=== PATIENT | female | born 1985 | race Caucasian/White ===

== ENCOUNTER → 2017-09-07 | Outpatient (CLI) | payer BC ==
--- NOTE | 2017-09-07 13:44 | Diagnostic Imaging Report ---
INDICATION: Left breast density. Patient presents for additional views. COMPARISON: 08/19/2017. TECHNIQUE: Unilateral left 2D and 3D diagnostic mammography was performed including a rolled CC spot as well as spot compression CC, spot compression ML, and conventional 90 degree lateral views. FINDINGS: Parenchymal asymmetry in the outer left breast is noted. No discrete mass is seen with additional views and the findings are likely owing to benign parenchymal asymmetry. No suspicious calcifications are seen. IMPRESSION: Parenchymal asymmetry in the outer left breast at approximately the 3 o'clock location is likely benign parenchymal asymmetry. No discrete mass is seen with additional views. Even so, further evaluation of this area with ultrasound is recommended. ACR BI-RADS Category 0: Incomplete. (Needs additional imaging evaluation). Result letter will be mailed to the patient. Note: At least 10% of breast cancer is not imaged by mammography. Dictated by: Dictated on workstation # [id number]
--- NOTE | 2017-09-07 14:11 | Diagnostic Imaging Report ---
INDICATION: Left breast density. COMPARISON: Correlation is made with the diagnostic mammogram of 09/07/2017 and an outside screening mammogram from 08/19/2017. TECHNIQUE: Sonographic interrogation of the outer left breast was performed. FINDINGS: No sonographic abnormality is seen. No solid or cystic mass is detected. IMPRESSION: No sonographic abnormality is seen. The patient may return to routine annual screening mammography. Dictated by: Dictated on workstation # [id number]
== END ==
LOC: RAD 13:08
PROVIDERS: ATTEND Nurse Practitioner Family
DX: N64.89 Other specified disorders of breast (principal)
CPT/HCPCS: 76642

== ENCOUNTER 2020-06-21 05:33 | Outpatient (CLI) | payer BC ==
[~2020-06-21] VITALS: Ht 162.6 cm; Wt 96.8 kg
[~2020-06-21 05:33] MED LIST: ACHD5005 PO; FLUT9.9S NS; NORE-91 PO; RT-ALBUINH IH
[2020-06-21] MEDS ORDERED: MONT10TA32 PO (11:12)
== END 2020-06-21 11:19 | disposition home or self-care (01) ==
LOC: PREOP 05:33
PROVIDERS: ATTEND Obstetrics & Gynecology
DX: Z01.818 Encounter for other preprocedural examination (principal)

== ENCOUNTER 2020-06-29 07:09 | Day surgery (SDC) | payer BC ==
[2020-06-29] VITALS (10 sets, daily range): BP systolic 87–134; BP diastolic 47–73
[~2020-06-29] VITALS: Ht 162.6 cm; Wt 96.8 kg
[~2020-06-29 07:09] MED LIST changes: +MONT10TA32 PO
[2020-06-29] MEDS: LACTATED RINGERS 1,000 ML IV PRN ×2 (07:48→09:22)
[2020-06-29 08:01] LABS: BASOPHILS % (AUTO) 0 % (0-10); EOSINOPHILS # (AUTO) 0.2 10^3/uL (0.0-0.3); EOSINOPHILS % (AUTO) 2 % (0-10); HEMATOCRIT 34 % (35-52); HEMOGLOBIN 11.2 g/dL (11.5-16.0); LYMPHOCYTES # (AUTO) 1.8 10^3/uL (1.0-4.0); LYMPHOCYTES % (AUTO) 17 % (12-44); MEAN CORPUSCULAR HEMOGLOBIN 28 pg (25-34); MEAN CORPUSCULAR HGB CONC 33 g/dL (32-36); MEAN CORPUSCULAR VOLUME 86 fL (80-99); MEAN PLATELET VOLUME 12.2 fL (9.0-12.2); MONOCYTES # (AUTO) 0.5 10^3/uL (0.0-1.0); MONOCYTES % (AUTO) 5 % (0-12); NEUTROPHILS # (AUTO) 8.3 10^3/uL (1.8-7.8); NEUTROPHILS % (AUTO) 76 % (42-75); PLATELET COUNT 266 10^3/uL (130-400); WHITE BLOOD COUNT 10.8 10^3/uL (4.3-11.0)
[2020-06-29] MEDS ORDERED: ONDANSETRON 4 MG/2 ML (SDV) Z0FRAN ONE (08:06)
[2020-06-29] MEDS ORDERED: MV-M1COM2 PO (08:20)
[2020-06-29] MEDS ORDERED: fentaNYL INJ 100 MCG/2 ML AMP ONE (08:26)
--- NOTE | 2020-06-29 08:31 | Progress Note-Pre Operative ---
Pre-Operative Progress Note H&P Reviewed The H&P was reviewed, patient examined and no changes noted. Date Seen by Provider: Jun 29, 2020 Time Seen by Provider: 08:00 Date H&P Reviewed: Jun 29, 2020 Time H&P Reviewed: 07:55 Pre-Operative Diagnosis: Shortened cervix, Hx of LEEP DAISHA BRAVO DO Jun 29, 2020 08:31
--- NOTE | 2020-06-29 08:34 | Discharge Inst-Women's Service ---
Discharge Inst-Women's Serv Depart Medication/Instructions New, Converted or Re-Newed RX: RX on Chart Problems Reviewed?: Yes Consults/Follow Up Additional Follow Up: Yes Orders/Referrals Dr. Bravo next week Activity Activity: Activity as Tolerated Driving Instructions: You May Drive (do not drive this weekend) NO SMOKING: NO SMOKING Nothing Inside Vagina: No Douching, No [place], No Tampons Diet Discharge Diet: No Restrictions Symptoms to Report to : Bleeding Excessive, Pain Increased, Fever Over 101 Degrees F, Vaginal Bleeding Increase, Questions/Concerns For Any Problems or Questions: Contact Your Physician DAISHA BRAVO DO Jun 29, 2020 08:34
[2020-06-29] MEDS ORDERED: ACHD5005 PO (08:35)
[2020-06-29] MEDS ORDERED: INDO25CA99 PO (08:35)
[2020-06-29] MEDS ORDERED: HYDROcodone/APAP 5 MG/325 MG (LORTAB) TAB PO PRN (08:45)
[2020-06-29] MEDS ORDERED: HYDROmorphone 2 MG/ML VIAL (DILAUDID) IV PRN (08:45)
[2020-06-29] MEDS ORDERED: ONDANSETRON 4 MG/2 ML (SDV) Z0FRAN IVP PRN ×2 (08:45→09:15)
[2020-06-29] MEDS ORDERED: INDOMETHACIN 25 MG (INDOCIN) CAP PO ONE (08:45)
[2020-06-29] MEDS ORDERED: D5 LR IV SOLUTION 1,000 ML IV SCH (08:45)
--- NOTE | 2020-06-29 09:52 | Anesthesia-Regional Post-Op ---
Regional Patient Condition Mental Status: Alert, Oriented x3 Circulation: Same as Pre-Op Headache: Absent Sensation: Full Recovery Motor Block: Absent Post Op Complications Complications None Follow Up Care/Instructions Patient Instructions None needed. Anesthesia/Patient Condition Patient is doing well, no complaints, stable vital signs, no apparent adverse anesthesia problems. No complications reported per nursing. [place] [facility]: Yes JUANITO SUE CRNA Jun 29, 2020 09:52
--- NOTE | 2020-06-29 15:33 | OPERATIVE REPORT ---
DATE OF SERVICE: PREOPERATIVE DIAGNOSES: 1. A 34-year-old female with shortened cervix. 2. History of conization of the cervix. POSTOPERATIVE DIAGNOSES: 1. A 34-year-old female with shortened cervix. 2. History of conization of the cervix. PROCEDURE: Jenkins cerclage x2. SURGEON: Sandro Campuzano DO ANESTHESIA: Spinal. ESTIMATED BLOOD LOSS: 50 mL. URINE OUTPUT: Not recorded. The patient had voided at the start of the procedure. FLUIDS: 1000 mL lactated Ringer's solution. FINDINGS: A shortened cervix on gross inspection followed by a shortened cervix on ultrasound examination, less than 4 cm at 15 weeks. Grossly normal-appearing external female genitalia otherwise. SPECIMEN SENT: None. INDICATIONS FOR PROCEDURE: This 34-year-old female is a patient who had sought care in my office. She had a identified early in the first trimester, with her history reviewed. We would monitor her cervical length at 14 to 15 weeks and if there was anything less than 4 cm would proceed with a cerclage prophylactically due to the increased risk of dilation in labor and cervical incompetence. Risk of the procedure were discussed with the patient extensively in the office and reviewed again in the preoperative area including risk of bleeding, infection, damage to any surrounding structures including but not limited to uterus itself as well as loss of life, possible premature rupture of membranes, which at this point, the fetus would not be viable. After all of her questions were answered, she was agreeable to proceed. Consent was obtained and the patient was taken to the operating room. OPERATIVE REPORT IN DETAIL: Once in the operating room, spinal anesthesia was found to be adequate, placed in dorsal lithotomy position, prepped and draped in normal sterile fashion. Timeout was performed. Weighted speculum was inserted to the patient's vagina. Right angle retractor was used to visualize the cervix, which was grasped at 12 o'clock position using a long ring forceps. I then placed two separate Jenkins cerclages with #1 goretex non dissolvable green stained suture starting at the 12 o'clock position, taking four separate 1/4 of the cervix bites around the cervix, creating a pursestring and sensing the pursestring at the 12 o'clock position. Both of these are felt to have an adequate amount of tissue and suturing the cervix, after which there was no active bleeding noted. The vagina was copiously irrigated using normal saline. The irrigation was noted to be clear at the end of the procedure and no bleeding was noted. All instruments were removed from the patient's vagina. The patient tolerated the procedure well and sent to recovery in stable condition. Lap and sponge counts were correct at the end of the procedure. Instrument counts correct as well. heart tones were auscultated at 158 and 161, both pre and postoperatively. Job ID: [id number] DocumentID: [id number] Dictated Date: 06/29/2020 09:17:49 Shredding Machine Knife Changer Date: 06/29/2020 15:32:38 Dictated By: DO BILLIE PINTO
== END 2020-06-29 13:10 | disposition home or self-care (01) ==
LOC: SDC 07:09
PROVIDERS: ATTEND Obstetrics & Gynecology
DX: O26.872 Cervical shortening, second trimester (principal); Z88.2 Allergy status to sulfonamides; Z68.36 Body mass index [BMI] 36.0-36.9, adult; E66.9 Obesity, unspecified; Z79.899 Other long term (current) drug therapy; Z83.3 Family history of diabetes mellitus; Z82.49 Family history of ischemic heart disease and other diseases of the circulatory system
CPT/HCPCS: 36415; 85025; 86850; 86900; 86901; 87081

== ENCOUNTER → 2020-07-27 | Outpatient (CLI) | payer BC ==
[~2020-07-27] MED LIST changes: +INDO25CA99 PO; +MV-M1COM2 PO
--- NOTE | 2020-07-27 17:02 | Diagnostic Imaging Report ---
INDICATION: Anatomy survey. TECHNIQUE: Multiple real-time grayscale images were obtained over the gravid uterus. COMPARISON: None. FINDINGS: Gestational age 20 weeks, 2 days, with an LAMINE of 12/12/2020. Number: Single live intrauterine Presentation: Cephalic Placenta: Posterior Amniotic Fluid: VIOLETA is visually within normal limits. No measurements of the amniotic fluid were obtained. Heart Rate: 140 bpm Cerebellum: visualized Lateral ventricles: visualized Cavum septum pellucidum: visualized Nasal Bone: Not visualized Face: Not visualized Stomach: visualized Kidneys: visualized Bladder: visualized Three vessel cord: visualized Cord insertion: visualized 4 chamber heart: visualized outflow tracts: Not visualized Spine, upper: visualized Spine, lower: visualized Upper extremities: visualized Lower extremities: visualized Hands: Visualized, however not all fingers are well seen. Feet: Visualized, however not all toes are well seen. Biometrical measurements are as follows: Biparietal 4.76 cm, age 20 weeks 3 days. Head circumference 17.59 cm, age 20 weeks 1 days. Abdominal circumference 14.66 cm, age 20 weeks 0 days. Femur length 3.52 cm, age 21 weeks 1 days. Sonographic estimate age: 20 weeks 3 days. Sonographic estimated date of delivery: 12/11/20. Estimated Weight: 355 gm (+/- 52 gm). LMP percentile: 55%. heart rate: 140 beats per minute. number: 1 of 1. IMPRESSION: 1. Single live intrauterine gestation measuring 20 weeks 3 days with an estimated due date of 12/11/2020. These are within range of the clinical dates. 2. The outflow tracts, nasal bone, and face are not visualized. The remainder of the anatomic structures are seen and have a normal appearance. Recommend follow-up as indicated. Dictated by: Dictated on workstation # [id number]
== END ==
LOC: RAD 15:15
PROVIDERS: ATTEND Nurse Practitioner Women's Health
DX: Z34.02 Encounter for supervision of normal first pregnancy, second trimester (principal); Z3A.20 20 weeks gestation of pregnancy
CPT/HCPCS: 76805

== ENCOUNTER → 2020-11-15 | Outpatient (CLI) | payer BC ==
[2020-11-15 17:20] LABS: URINE CREATININE FOR RATIO 21 MG/DL (30-125); URINE PROTEIN FOR RATIO ONLY < 6 MG/DL (6-12)
== END ==
LOC: LABNPT 16:31
PROVIDERS: ATTEND Nurse Practitioner Women's Health
DX: R03.0 Elevated blood-pressure reading, without diagnosis of hypertension (principal)
CPT/HCPCS: 82570; 84156

== ENCOUNTER 2020-11-22 16:28 | Inpatient (IN) | payer BC ==
[2020-11-22] VITALS (20 sets, daily range): BP systolic 135–191; BP diastolic 63–92
[~2020-11-22] VITALS: Ht 162.6 cm; Wt 98.6 kg
[2020-11-22] MEDS ORDERED: GLYB1.253 PO (17:07)
[2020-11-22 17:16] LABS: BASOPHILS # (AUTO) 0.1 10^3/uL (0.0-0.1); BASOPHILS % (AUTO) 0 % (0-10); EOSINOPHILS # (AUTO) 0.2 10^3/uL (0.0-0.3); EOSINOPHILS % (AUTO) 1 % (0-10); HEMATOCRIT 39 % (35-52); HEMOGLOBIN 12.4 g/dL (11.5-16.0); LYMPHOCYTES # (AUTO) 2.5 10^3/uL (1.0-4.0); LYMPHOCYTES % (AUTO) 21 % (12-44); MEAN CORPUSCULAR HEMOGLOBIN 27 pg (25-34); MEAN CORPUSCULAR HGB CONC 32 g/dL (32-36); MEAN CORPUSCULAR VOLUME 86 fL (80-99); MEAN PLATELET VOLUME 15.5 fL (9.0-12.2); MONOCYTES # (AUTO) 0.7 10^3/uL (0.0-1.0); MONOCYTES % (AUTO) 5 % (0-12); NEUTROPHILS # (AUTO) 8.6 10^3/uL (1.8-7.8); NEUTROPHILS % (AUTO) 71 % (42-75); PLATELET COUNT 156 10^3/uL (130-400); WHITE BLOOD COUNT 12.1 10^3/uL (4.3-11.0)
[2020-11-22 17:17] LABS: ALBUMIN 3.5 GM/DL (3.2-4.5)
[2020-11-22 17:18] LABS: POTASSIUM 3.6 MMOL/L (3.6-5.0)
[2020-11-22 17:19] LABS: CALCIUM 10.1 MG/DL (8.5-10.1)
[2020-11-22 17:20] LABS: TOTAL PROTEIN 7.4 GM/DL (6.4-8.2)
[2020-11-22 17:22] LABS: BILIRUBIN,TOTAL 0.3 MG/DL (0.1-1.0)
[2020-11-22 17:24] LABS: CREATININE SERUM 0.81 MG/DL (0.60-1.30)
[2020-11-22 17:27] LABS: URIC ACID 6.4 MG/DL (2.6-7.2)
[2020-11-22] MEDS ORDERED: hydrALAZINE (APESOLINE) 20 MG/ML VIAL ONE (18:27)
[2020-11-22] MEDS ORDERED: NS IV 1000 ML 1,000 ML ONE (18:27)
[2020-11-22] MEDS ORDERED: hydrALAZINE (APESOLINE) 20 MG/ML VIAL IV PRN (18:30)
[2020-11-22] MEDS: NS IV 1000 ML 1,000 ML IV SCH ×2 (19:29→22:46)
[2020-11-22] MEDS ORDERED: MINERAL OIL CONCENTRATE 99.9% 15 ML UDC TOP PRN (19:30)
[2020-11-22] MEDS ORDERED: hydrALAZINE (APESOLINE) 20 MG/ML VIAL IV ONE (20:15)
--- NOTE | 2020-11-22 21:51 | History & Physical-OB ---
OB - Chief Complaint & HPI Date/Time Date of Admission: Date of Admission: Nov 22, 2020 at 19:48 Date seen by a Provider: Nov 22, 2020 Time Seen by a Provider: 17:00 Chief Complaint/History OB-Reason for Admission/Chief: Medical Complication Hx : 1 Hx Para: 0 Expected Date of Delivery: Dec 12, 2020 Gestational Age in Weeks: 37 Gestational Age in Days: 1 Indication for induction: medical complication Other reason for admission: Patient sent over from office after cerclage was removed for BP of 170/100s. Concerns of preE discussed with patient. She is also GDMA2 on glyburide. Admission Nurse Assessment Rev: Yes History of Labs A pos Antibody neg RI RPR NR HBsAg NR HIV NR GC neg GBS neg Allergies and Home Medications Allergies Coded Allergies: Sulfa (Sulfonamide Antibiotics) (Verified Allergy, Mild, HIVES, 06/29/20) Patient Home Medication List Home Medication List Reviewed: Yes Albuterol Sulfate (Proair Hfa) 1 Puff Puff, 2 PUFF IH Q4H PRN for SHORTNESS OF BREATH, (Reported) Entered as Reported by: ZOEY KIM on 11/10/17 1000 Last Action: Reviewed Glyburide (Glyburide) 1.25 Mg Tablet, 1.25 MG PO HS, (Reported) Entered as Reported by: DONY VALDEZ on 11/22/20 1707 Last Action: New Order Montelukast Sodium (Montelukast Sodium) 10 Mg Tablet, 10 MG PO DAILY, (Reported) Entered as Reported by: VILMA COMER on 06/21/20 1112 Last Action: Reviewed Mv-Mn/Iron/FA/Om3/Dha/Epa/Hb/D ( Daily Duo Combo Pack) 1 Each Combo..pkg, 1 EACH PO DAILY, (Reported) Entered as Reported by: MARYELLEN LEBRON on 06/29/20 0820 Last Action: Reviewed Discontinued Medications Fluticasone Propionate (Flonase Allergy Relief) 9.9 Ml [place].susp, 1 SPRAY NS DAILY PRN for CONGESTION, (Reported) Discontinued Reason: No Longer Taking Entered as Reported by: ZOEY KIM on 11/10/17 1000 Last Action: Discontinued Hydrocodone Bit/Acetaminophen (HYDROcodone/APAP 5 MG/325 MG TAB) 1 Tab Tab, 1 EA PO Q4H PRN for PAIN-MODERATE (5-7) Discontinued Reason: No Longer Taking Prescribed by: DAISHA BRAVO on 06/29/20834 Last Action: Discontinued Indomethacin (Indomethacin) 25 Mg Capsule, 25 MG PO Q6H Discontinued Reason: No Longer Taking Prescribed by: DAISHA BRAVO on 06/29/20834 Last Action: Discontinued OB - History Hx of Present Care: Yes Ultrasounds: Normal mid trimester US Obstetrical Complications: Gestational Diabetes, Gestational Hypertension Medical Complications: None Obstetrical History Hx : 1 Hx Para: 0 Hx Total # of Abortions (Spona: 0 Delivery History Hx Blood Disorders: No Adverse Rxn to Tranfusion: No (N/A) Patient Past Medical History history of conization of cervix thus need for cerclage due to shortened cervix. Social History/Family History Alcohol Use: Denies Use Recreational Drug Use: No Immunizations Date of Influenza Vaccine: Dec 22, 2019 OB - Admission Exam Physical Exam Vitals: Vital Signs 11/22/20 11/22/20 17:10 18:15 Temp 36.7 Pulse 64 Resp 18 B/P (MAP) 157/86 (109) Pulse Ox 98 O2 Delivery Room Air HEENT: NCAT Heart: Rhythm Normal Lungs: Clear Abdomen: Gravid Extremities: Normal Reflexes: Normal Cervical Dilatation: Fingertip Effacement: 50% Station: -3 Membranes: Intact Heart Rate: 130's Accelerations: Accelerations Present Decelerations: No Decelerations Short Term Variability: Present Certified Medical Records Coder Variability: Average (6-25) Contractions on Admission: >10 Minutes Apart Intensity: Mild Labs Laboratory Tests Test 11/22/20 16:55 11/22/20 17:35 Range/Units White Blood Count 12.1 H 4.3-11.0 10^3/uL Red Blood Count 4.54 3.80-5.11 10^6/uL Hemoglobin 12.4 11.5-16.0 g/dL Hematocrit 39 35-52 % Mean Corpuscular Volume 86 80-99 fL Mean Corpuscular Hemoglobin 27 25-34 pg Mean Corpuscular Hemoglobin Concent 32 32-36 g/dL Red Cell Distribution Width 14.0 10.0-14.5 % Platelet Count 156 130-400 10^3/uL Mean Platelet Volume 15.5 H 9.0-12.2 fL Immature Granulocyte % (Auto) 2 % Neutrophils (%) (Auto) 71 42-75 % Lymphocytes (%) (Auto) 21 12-44 % Monocytes (%) (Auto) 5 0-12 % Eosinophils (%) (Auto) 1 0-10 % Basophils (%) (Auto) 0 0-10 % Neutrophils # (Auto) 8.6 H 1.8-7.8 10^3/uL Lymphocytes # (Auto) 2.5 1.0-4.0 10^3/uL Monocytes # (Auto) 0.7 0.0-1.0 10^3/uL Eosinophils # (Auto) 0.2 0.0-0.3 10^3/uL Basophils # (Auto) 0.1 0.0-0.1 10^3/uL Immature Granulocyte # (Auto) 0.2 H 0.0-0.1 10^3/uL Percent Immature Platelet Fraction 27.6 H 0.0-7.6 % Sodium Level 136 135-145 MMOL/L Potassium Level 3.6 3.6-5.0 MMOL/L Chloride Level 105 98-107 MMOL/L Carbon Dioxide Level 18 L 21-32 MMOL/L Anion Gap 13 5-14 MMOL/L Blood Urea Nitrogen 12 7-18 MG/DL Creatinine 0.81 0.60-1.30 MG/DL Estimat Glomerular Filtration Rate 80 BUN/Creatinine Ratio 15 Glucose Level 69 L 70-105 MG/DL Uric Acid 6.4 2.6-7.2 MG/DL Calcium Level 10.1 8.5-10.1 MG/DL Corrected Calcium 10.5 H 8.5-10.1 MG/DL Total Bilirubin 0.3 0.1-1.0 MG/DL Aspartate Amino Transf (AST/SGOT) 42 H 5-34 U/L Alanine Aminotransferase (ALT/SGPT) 50 0-55 U/L Alkaline Phosphatase 164 H 40-136 U/L Total Protein 7.4 6.4-8.2 GM/DL Albumin 3.5 3.2-4.5 GM/DL Urine Protein 10 6-12 MG/DL Urine Creatinine 37 30-125 MG/DL Urine Protein/Creatinine Ratio 0.27 OB - Assessment/Plan/Diagnosis Assessment Assessment: induction of labor Admission Dx 35 yo @ 37.1 Uncontrolled GHTN/ Severe PreE GDMA2- on glyburide well controlled Cerclage removed today GBS neg Admission Status: Inpatient Order (span 2 midnights) Reason for Inpatient Admission: IOL due to PreE at 37 weeks Plan Plan: Induction Induction Method: per Misoprostol Protocol Other Plan Discussed with patient if BP control is not able to be done, due to her unfavorable cervix and remote from delivery will consider and likely recommend DAISHA BRAVO DO Nov 22, 2020 21:51
[2020-11-22] MEDS ORDERED: CATHETER FLUSH 10 ML SYR IV SCH (22:00)
[2020-11-22] MEDS ORDERED: FAMOTIDINE 20MG/2ML IV (PEPCID) ONE (23:20)
[2020-11-22] MEDS ORDERED: CITRIC ACID/SOB CIT (BICITRA) 30 ML UDC ONE (23:20)
[2020-11-22] MEDS ORDERED: METOCLOPRAMIDE INJ 10 MG/2 ML (REGLAN) ONE (23:20)
[2020-11-22] MEDS ORDERED: FAMOTIDINE 20MG/2ML IV (PEPCID) IV ONE (23:30)
[2020-11-22] MEDS ORDERED: METOCLOPRAMIDE INJ 10 MG/2 ML (REGLAN) IV ONE (23:30)
[2020-11-22] MEDS ORDERED: CITRIC ACID/SOB CIT (BICITRA) 30 ML UDC PO ONE (23:30)
[2020-11-22] MEDS ORDERED: LACTATED RINGERS 1,000 ML IV PRN ×2 (23:30)
[2020-11-22] MEDS ORDERED: ceFAZolin 2 GM IV Premixed 50 ML ONE (23:39)
[2020-11-22] MEDS ORDERED: fentaNYL INJ 100 MCG/2 ML AMP ONE (23:48)
[2020-11-23] VITALS (34 sets, daily range): BP systolic 127–177; BP diastolic 71–112
[2020-11-23] MEDS ORDERED: MEASLES,MUMPS,RUBELLA 1 EA INJ SC SCH
[2020-11-23] MEDS ORDERED: ONDANSETRON 4 MG/2 ML (SDV) Z0FRAN IVP PRN
[2020-11-23] MEDS ORDERED: NALOXONE 0.4 MG/ML 1 ML (NARCAN) VIAL IV PRN
[2020-11-23] MEDS ORDERED: TETANUS,DIPTH,PERTUSS P/F (BOOSTRIX) 0.5 ML VIAL IM SCH
[2020-11-23] MEDS ORDERED: amLODIPine 2.5MG (NORVASC) TAB PO ONE ×2 (00:15→12:45)
[2020-11-23] MEDS ORDERED: D5 LR IV SOLUTION 1,000 ML IV SCH (00:15)
[2020-11-23] MEDS ORDERED: CALCIUM GLUC. 10% 4.65 MEQ/10 ML VIAL IV PRN (00:15)
[2020-11-23] MEDS ORDERED: MAGNESIUM 4 GM/100 ML IVPB 100 ML IV SCH (00:15)
[2020-11-23] MEDS ORDERED: MAGNESIUM 4 GM/100 ML IVPB 100 ML IV ONE (00:20)
[2020-11-23] MEDS ORDERED: MAGNESIUM SULFATE DRIP 500 ML IV ONE (00:20)
[2020-11-23] MEDS ORDERED: ONDANSETRON 4 MG/2 ML (SDV) Z0FRAN ONE (00:55)
[2020-11-23] MEDS ORDERED: OXYTOCIN PRE-MIX DRIP 1,000 ML IV ONE (00:55)
[2020-11-23] MEDS: KETOROLAC 30 MG/ML VIAL IV SCH ×4 (01:11→20:15)
[2020-11-23] MEDS: OXYTOCIN PRE-MIX DRIP 500 ML IV SCH ×2 (01:47→02:37)
--- NOTE | 2020-11-23 05:43 | OPERATIVE REPORT ---
DATE OF SERVICE: PREOPERATIVE DIAGNOSES: 1. A 35-year-old female with severe preeclampsia. 2. Remote from delivery. POSTOPERATIVE DIAGNOSES: 1. A 35-year-old female with severe preeclampsia. 2. Remote from delivery. PROCEDURE: Primary low transverse section. SURGEON: Sandro Bravo DO ANESTHESIA: Spinal. ESTIMATED BLOOD LOSS: 300 mL. URINE OUTPUT: 200 mL clear at the end of procedure. FLUIDS: 1000 mL lactated Ringer's solution. FINDINGS: A live female infant weighing 6 pounds 4 ounces, Apgars of 5 and 8. Grossly normal appearing uterus, bilateral fallopian tubes and ovaries. SPECIMEN SENT: Placenta. INDICATIONS FOR PROCEDURE: This 35-year-old primigravida patient who had sought care in my office. Her was complicated by shortened cervix where a cerclage was placed at around 18 weeks' gestation. She developed gestational diabetes and had to be controlled using glyburide, diagnosed with gestational diabetes A2. Finally, in the last 2-3 weeks, her blood pressure slowly became elevated with -induced hypertension to the point today where I removed her cerclage. After the cerclage was removed, her blood pressure was high at 170s/100s in the office. I sent her to the hospital, not just for monitoring due to cerclage removed, but also to monitor her blood pressures and to work her up for preeclampsia. She had a urine protein creatinine ratio of 0.2 as well as blood pressures upon arrival as high as 190s/105. These remained high. I believe the lowest without any blood pressure medication administration was in the 170s/100s. Due to these findings, the patient was diagnosed with severe preeclampsia and admitted for delivery. Her cervix was closed, thick, posterior and high. Misoprostol p.o. was given as an induction method; however, despite hydralazine IV dosing, her blood pressures remained elevated as high as 160s-170s/90s. Due to my concerns of elevated blood pressures and difficulty controlling these and remoteness from delivery and a very long labor course, however, I discussed with the patient proceeding with primary for urgent delivery and allowing us to treat her blood pressure without concerns for repercussions. Risks of the procedure were discussed with the patient in detail. Once all of her questions were answered, consent was obtained, the patient was taken to the operating room. OPERATIVE REPORT IN DETAIL: Once in the operating room, spinal analgesia was found to be adequate. She was placed in the supine position with leftward tilt, prepped and draped in normal sterile fashion. A timeout was performed and anesthesia was tested. A Pfannenstiel skin incision was then made with a knife and carried down to underlying fascia using Bovie cautery. Fascial incision extended laterally using Bovie cautery. Superior aspect of fascial incision was then grasped with Ryder clamps, tented up and dissected off the underlying rectus muscles. The inferior aspect of fascial incision was then grasped with Ryder clamps, tented up and dissected off the underlying rectus muscles. The underlying rectus muscles were then dissected down the midline using Connelly scissors, which exposed the peritoneum, which I entered bluntly and extended using blunt traction. Jesus ring retractor was placed in the peritoneal incision, which offers excellent lateral sidewall retraction allows me to identify the lower uterine segment, which was thinned out and make a low transverse incision to the vesicouterine peritoneum and bluntly dissected off the lower uterine segment, creating a bladder flap. I then proceeded with myotomy until membranes were visualized, at which point I extended the uterine incision laterally and superiorly using bandage scissors. Amniotomy was performed using Allis clamp. Clear fluid was noted. The was found in the vertex presentation. With gentle fundal pressure, the 's head was delivered through the incision where the nares and oropharynx were bulb suctioned. Anterior and posterior shoulders were delivered. Infant was then brought to the operative field with cord doubly clamped and cut and infant was handed off to waiting nurses in attendance. Cord blood was collected. 3-vessel cord with intact placenta was delivered spontaneously thereafter. IV Pitocin was initiated to facilitate uterine contraction. Uterine fundus confirmed by manual massage. Uterus was then exteriorized and cleared of all endometrial clots and debris. I then proceeded with closing the uterine incision using 0 Vicryl suture in running locked fashion. Second layer of imbricating 0 Monocryl was placed. Excellent hemostasis was noted after doing this. I then placed the uterus back in the pelvis and copiously irrigated the pelvis using normal saline. Once again, no active bleeding noted from any of my dissection planes. I removed the Jesus ring retractor and proceeded with closing the peritoneum using 3-0 Vicryl suture in running fashion. The rectus muscles were reapproximated using 3-0 Vicryl suture in interrupted fashion. The fascia was reapproximated using 0 Vicryl suture in running fashion. The subcutaneous tissue was reapproximated using 3-0 plain in interrupted subcutaneous stitch and skin reapproximated using 4-0 Monocryl running subcuticular. Dermabond was applied to incision and sterile dressing with adhesive white tape. The patient tolerated the procedure well and sent to recovery in stable condition. Lap and sponge counts were correct at the end of the procedure. Instrument counts correct as well. Two grams of Ancef given preoperatively for infection prophylaxis. There was a decrease in her blood pressure intraoperatively; however, at the end of the procedure, her blood pressures began to come back up in the 130s-140s/90s. We will likely start magnesium administration postoperatively if her blood pressures reach preeclampsia levels of 140s/90s. Oral antihypertensives are also going to be administered postoperatively. Job ID: [id number] DocumentID: [id number] Dictated Date: 11/23/2020 01:00:37 Under Water Assistant Date: 11/23/2020 05:43:20 Dictated By: SANDRO BRAVO DO
[2020-11-23 06:21] LABS: BASOPHILS % (AUTO) 0 % (0-10); MEAN CORPUSCULAR VOLUME 87 fL (80-99); NEUTROPHILS # (AUTO) 9.7 10^3/uL (1.8-7.8)
[2020-11-23] MEDS: MAGNESIUM SULFATE DRIP 500 ML IV SCH ×2 (06:21→16:34)
[2020-11-23 06:23] LABS: EOSINOPHILS # (AUTO) 0.1 10^3/uL (0.0-0.3); EOSINOPHILS % (AUTO) 1 % (0-10); HEMATOCRIT 35 % (35-52); HEMOGLOBIN 10.9 g/dL (11.5-16.0); LYMPHOCYTES # (AUTO) 1.8 10^3/uL (1.0-4.0); LYMPHOCYTES % (AUTO) 15 % (12-44); MEAN CORPUSCULAR HEMOGLOBIN 27 pg (25-34); MEAN CORPUSCULAR HGB CONC 31 g/dL (32-36); MONOCYTES # (AUTO) 0.8 10^3/uL (0.0-1.0); MONOCYTES % (AUTO) 6 % (0-12); NEUTROPHILS % (AUTO) 78 % (42-75); PLATELET COUNT 125 10^3/uL (130-400); WHITE BLOOD COUNT 12.5 10^3/uL (4.3-11.0)
[2020-11-23] MEDS ORDERED: amLODIPine 5 MG (NORVASC) TAB PO SCH (09:00)
[2020-11-23] MEDS: DOCUSATE SODIUM 100 MG (COLACE) CAP PO SCH (09:35)
--- NOTE | 2020-11-23 11:06 | Postpartum Progress Note ---
Note Note Day # 1 Subjective: Patient is without complaints. Voiding via catheter, has had 1700cc out since 0600. Tolerating a regular diet without nausea or vomiting. Normal lochia. Pain is well controlled with oral pain medications. Denies headaches, vision changes. Objective: Physical Exam: General - Alert and oriented, no apparent distress Abdomen - Soft, appropriately tender to palpation, non-distended, fundus firm at umbilicus Extremities - no edema, negative Kaylan's bilaterally Assessment: Post- day # 1, status post PLTCS. Preeclampsia Recovering well, hemodynamically stable Acute blood loss anemia Plan: Routine care. Encourage breast feeding. Encourage ambulation. Ferrous sulfate supplementation. Continue MagSulfate IV until 183, plan to DC if pressures improved Begin Norvasc 5mg PO daily Plan for tentative discharge 11/25 Vitals - Labs Vital Signs - I&O Vital Signs Date Time Temp Pulse Resp B/P (MAP) Pulse Ox O2 Delivery O2 Flow Rate FiO2 11/23/20 07:00 73 18 143/95 (111) 11/23/20 07:00 73 18 143/95 (111) Room Air 11/23/20 06:45 81 18 148/95 (112) 11/23/20 06:45 81 18 148/95 (112) Room Air 11/23/20 06:30 80 18 157/92 (113) Room Air 11/23/20 06:30 80 18 157/92 (113) 11/23/20 06:17 78 18 157/94 (115) Room Air 11/23/20 06:15 76 18 147/94 (111) Room Air 11/23/20 06:15 76 18 147/94 (111) 11/23/20 06:12 37.1 76 18 153/99 (117) Room Air 11/23/20 06:00 37.2 76 18 175/83 (113) 97 Room Air 11/23/20 01:53 75 18 139/76 (97) 97 Room Air 11/23/20 01:45 Room Air 11/23/20 01:40 36.5 16 136/83 (100) 98 Room Air 11/23/20 01:30 16 127/80 (96) 98 Room Air 11/23/20 01:30 Room Air 11/23/20 01:20 16 139/80 (99) 98 Room Air 11/23/20 01:15 Room Air 11/23/20 01:12 16 136/97 (110) 98 Room Air 11/23/20 00:55 Room Air 11/23/20 00:55 36.6 16 129/71 (90) 99 Room Air 11/23/20 00:00 111 18 169/88 (115) Room Air 11/22/20 23:45 92 18 172/85 (114) Room Air 11/22/20 23:30 93 18 164/82 (109) Room Air 11/22/20 23:15 70 18 167/78 (107) Room Air 11/22/20 22:45 92 18 171/90 (117) Room Air 11/22/20 22:30 78 18 163/82 (109) Room Air 11/22/20 22:15 73 18 159/80 (106) Room Air 11/22/20 22:00 79 18 135/63 (87) Room Air 11/22/20 21:30 90 18 150/71 (97) Room Air 11/22/20 21:15 93 18 143/67 (92) Room Air 11/22/20 21:00 36.4 88 18 147/68 (94) Room Air 11/22/20 20:45 100 18 148/73 (98) Room Air 11/22/20 20:30 77 18 159/81 (107) Room Air 11/22/20 20:00 68 18 165/85 (111) Room Air 11/22/20 19:30 76 18 159/74 (102) Room Air 11/22/20 19:00 70 18 180/91 (120) Room Air 11/22/20 18:15 64 18 157/86 (109) 98 Room Air 11/22/20 17:45 71 18 181/83 (115) 98 Room Air 11/22/20 17:10 36.7 73 18 98 Room Air 11/22/20 17:05 71 18 191/92 (125) 97 Room Air 11/22/20 16:45 36.7 77 18 170/82 (111) 98 Room Air I & O 11/23/20 07:00 Intake Total 50 ml Output Total 675 ml Balance -625 ml Labs Laboratory Tests 11/22/20 16:55: White Blood Count 12.1H, Red Blood Count 4.54, Hemoglobin 12.4, Hematocrit 39, Mean Corpuscular Volume 86, Mean Corpuscular Hemoglobin 27, Mean Corpuscular Hemoglobin Concent 32, Red Cell Distribution Width 14.0, Platelet Count 156, Mean Platelet Volume 15.5H, Immature Granulocyte % (Auto) 2, Neutrophils (%) (Auto) 71, Lymphocytes (%) (Auto) 21, Monocytes (%) (Auto) 5, Eosinophils (%) (Auto) 1, Basophils (%) (Auto) 0, Neutrophils # (Auto) 8.6H, Lymphocytes # (Auto) 2.5, Monocytes # (Auto) 0.7, Eosinophils # (Auto) 0.2, Basophils # (Auto) 0.1, Immature Granulocyte # (Auto) 0.2H, Percent Immature Platelet Fraction 27.6H, Sodium Level 136, Potassium Level 3.6, Chloride Level 105, Carbon Dioxide Level 18L, Anion Gap 13, Blood Urea Nitrogen 12, Creatinine 0.81, Estimat Glomerular Filtration Rate 80, BUN/Creatinine Ratio 15, Glucose Level 69L, Uric Acid 6.4, Calcium Level 10.1, Corrected Calcium 10.5H, Total Bilirubin 0.3, Aspartate Amino Transf (AST/SGOT) 42H, Alanine Aminotransferase (ALT/SGPT) 50, Alkaline Phosphatase 164H, Total Protein 7.4, Albumin 3.5 11/22/20 17:35: Urine Protein 10, Urine Creatinine 37, Urine Protein/Creatinine Ratio 0.27 11/23/20 01:47: Magnesium Level 1.6 11/23/20 05:54: White Blood Count 12.5H, Red Blood Count 4.00, Hemoglobin 10.9L, Hematocrit 35, Mean Corpuscular Volume 87, Mean Corpuscular Hemoglobin 27, Mean Corpuscular Hemoglobin Concent 31L, Red Cell Distribution Width 14.5, Platelet Count 125L, Mean Platelet Volume 15.0H, Immature Granulocyte % (Auto) 1, Neutrophils (%) (Auto) 78H, Lymphocytes (%) (Auto) 15, Monocytes (%) (Auto) 6, Eosinophils (%) (Auto) 1, Basophils (%) (Auto) 0, Neutrophils # (Auto) 9.7H, Lymphocytes # (Auto) 1.8, Monocytes # (Auto) 0.8, Eosinophils # (Auto) 0.1, Basophils # (Auto) 0.0, Immature Granulocyte # (Auto) 0.1, Percent Immature Platelet Fraction 22.9H BRIANA JIM [employer] Nov 23, 2020 11:06
[2020-11-23] MEDS ORDERED: DCS100C PO (11:16)
[2020-11-23] MEDS ORDERED: IBUP-844 PO (11:16)
[2020-11-23] MEDS ORDERED: AMLO-250 PO (11:16)
[2020-11-23] MEDS ORDERED: ACHD5005 PO (11:16)
--- NOTE | 2020-11-23 11:21 | Discharge Inst-Women's Service ---
BRIANA JIM APRN 11/23/20 1121: Discharge Inst-Women's Serv Depart Medication/Instructions New, Converted or Re-Newed RX: Call to Patients Pharmacy Instructions Norvasc 5mg PO daily Problems Reviewed?: Yes Consults/Follow Up Additional Follow Up: Yes Orders/Referrals RTC in 1wk for incision and BP check; 6wk PP appt Activity Activity: Activity as Tolerated Driving Instructions: No Driving for 1 Week NO SMOKING: NO SMOKING Nothing Inside Vagina: No Douching, No Meno, No Tampons Diet Discharge Diet: No Restrictions Symptoms to Report to : Pain Increased, Fever Over 101 Degrees F, Heart Beat Irreg/Pounding, Vaginal Bleeding Increase For Any Problems or Questions: Contact Your Physician Skin/Wound Care Infection Signs and Symptoms: Increased Redness, Foul Odor of Wound, Increased Drainage, Temperature Above 101 F Operative Area Clean and Dry: Keep Incision Clean/Dry Stitches/[place]/Dermabond: Dermabond IZZY PERRY DO 11/25/20 1112: BRIANA JIM APRN Nov 23, 2020 11:21 IZZY PERRY DO Nov 25, 2020 11:12
[2020-11-23] MEDS ORDERED: amLODIPine 2.5MG (NORVASC) TAB ONE (13:01)
--- NOTE | 2020-11-23 13:40 | Anesthesia-Regional Post-Op ---
Regional Patient Condition Mental Status: Alert, Oriented x3 Circulation: Same as Pre-Op Headache: Absent Sensation: Full Recovery Motor Block: Absent Post Op Complications Complications None Follow Up Care/Instructions Patient Instructions None needed. Anesthesia/Patient Condition Patient is doing well, no complaints, stable vital signs, no apparent adverse anesthesia problems. VAHID ROUSE DO Nov 23, 2020 13:40
[2020-11-23] MEDS: CATHETER FLUSH 10 ML SYR IV SCH (20:15)
[2020-11-23] MEDS ORDERED: LABETALOL HCL 20 MG/4 ML VIAL ONE ×2 (20:46→20:47)
[2020-11-23] MEDS ORDERED: LABETALOL HCL 20 MG/4 ML VIAL IV ONE (21:00)
[2020-11-24] VITALS (7 sets, daily range): BP systolic 135–182; BP diastolic 82–95
[2020-11-24] MEDS: CATHETER FLUSH 10 ML SYR IV SCH ×2 (01:11→06:05)
[2020-11-24] MEDS: HYDROcodone/APAP 5 MG/325 MG (LORTAB) TAB PO PRN ×2 (01:17→06:10)
[2020-11-24] MEDS: NS IV 1000 ML 1,000 ML IV SCH ×2 (06:03→06:05)
[2020-11-24] MEDS: DOCUSATE SODIUM 100 MG (COLACE) CAP PO SCH ×3 (06:03→21:24)
[2020-11-24] MEDS: MAGNESIUM SULFATE DRIP 500 ML IV SCH (06:04)
[2020-11-24] MEDS: IBUPROFEN 600 MG (MOTRIN) TAB PO SCH ×4 (06:04→18:57)
[2020-11-24] MEDS: amLODIPine 5 MG (NORVASC) TAB PO SCH (08:13)
--- NOTE | 2020-11-24 08:54 | Postpartum Progress Note ---
Note Note Day # [1 s/p PLTCS severe preeclampsia excellent urine output yesterday (> 6 L by 8 pm). Magnesium discontinued per Dr. Campuzano's orders at 12 hours. Had 1 BP last night in severe range. 20 mg IV labetalol given and improved BP. Labile yesterday. Norvasc 10 mg started. Will receive the dose at 9 am Subjective: Patient is without complaints. Ambulating, voiding. Tolerating a regular diet without nausea or vomiting. Normal lochia. Pain is well controlled with oral pain medications. breast feeding. [] Objective: VS - Last 72 Hours, by Label 11/22/20 11/22/20 11/22/20 11/22/20 16:45 17:05 17:10 17:45 Temp 36.7 36.7 Pulse 77 71 73 71 Resp 18 18 18 18 B/P (MAP) 170/82 (111) 191/92 (125) 181/83 (115) Pulse Ox 98 97 98 98 O2 Delivery Room Air Room Air Room Air Room Air 11/22/20 11/22/20 11/22/20 11/22/20 18:15 19:00 19:30 20:00 Pulse 64 70 76 68 Resp 18 18 18 18 B/P (MAP) 157/86 (109) 180/91 (120) 159/74 (102) 165/85 (111) Pulse Ox 98 O2 Delivery Room Air Room Air Room Air Room Air 11/22/20 11/22/20 11/22/20 11/22/20 20:30 20:45 21:00 21:15 Temp 36.4 Pulse 77 100 88 93 Resp 18 18 18 18 B/P (MAP) 159/81 (107) 148/73 (98) 147/68 (94) 143/67 (92) O2 Delivery Room Air Room Air Room Air Room Air 11/22/20 11/22/20 11/22/20 11/22/20 21:30 22:00 22:15 22:30 Pulse 90 79 73 78 Resp 18 18 18 18 B/P (MAP) 150/71 (97) 135/63 (87) 159/80 (106) 163/82 (109) O2 Delivery Room Air Room Air Room Air Room Air 11/22/20 11/22/20 11/22/20 11/22/20 22:45 23:15 23:30 23:45 Pulse 92 70 93 92 Resp 18 18 18 18 B/P (MAP) 171/90 (117) 167/78 (107) 164/82 (109) 172/85 (114) O2 Delivery Room Air Room Air Room Air Room Air 11/23/20 11/23/20 11/23/20 11/23/20 00:00 00:55 00:55 01:12 Temp 36.6 Pulse 111 Resp 18 16 16 B/P (MAP) 169/88 (115) 129/71 (90) 136/97 (110) Pulse Ox 99 98 O2 Delivery Room Air Room Air Room Air Room Air 11/23/20 11/23/20 11/23/20 11/23/20 01:15 01:20 01:30 01:30 Resp 16 16 B/P (MAP) 139/80 (99) 127/80 (96) Pulse Ox 98 98 O2 Delivery Room Air Room Air Room Air Room Air 11/23/20 11/23/20 11/23/20 11/23/20 01:40 01:45 01:53 06:00 Temp 36.5 37.2 Pulse 75 76 Resp 16 18 18 B/P (MAP) 136/83 (100) 139/76 (97) 175/83 (113) Pulse Ox 98 97 97 O2 Delivery Room Air Room Air Room Air Room Air 11/23/20 11/23/20 11/23/20 11/23/20 06:12 06:15 06:15 06:17 Temp 37.1 Pulse 76 76 76 78 Resp 18 18 18 18 B/P (MAP) 153/99 (117) 147/94 (111) 147/94 (111) 157/94 (115) O2 Delivery Room Air Room Air Room Air 11/23/20 11/23/20 11/23/20 11/23/20 06:30 06:30 06:45 06:45 Pulse 80 80 81 81 Resp 18 18 18 18 B/P (MAP) 157/92 (113) 157/92 (113) 148/95 (112) 148/95 (112) O2 Delivery Room Air Room Air 11/23/20 11/23/20 11/23/20 11/23/20 07:00 07:00 07:15 07:30 Pulse 73 73 75 81 Resp 18 18 18 18 B/P (MAP) 143/95 (111) 143/95 (111) 156/96 (116) 158/99 (118) O2 Delivery Room Air Room Air Room Air 11/23/20 11/23/20 11/23/20 11/23/20 08:00 09:00 10:00 11:00 Temp 36.7 Pulse 72 80 77 90 Resp 16 16 16 16 B/P (MAP) 154/100 (118) 152/102 (119) 158/101 (120) 174/112 (132) O2 Delivery Room Air Room Air Room Air Room Air 11/23/20 11/23/20 11/23/20 11/23/20 12:00 12:21 13:00 14:00 Temp 36.7 Pulse 92 83 95 92 Resp 16 16 16 16 B/P (MAP) 169/109 (129) 153/96 (115) 165/99 (121) 169/93 (118) Pulse Ox 96 O2 Delivery Room Air Room Air Room Air Room Air 11/23/20 11/23/20 11/23/20 11/23/20 14:39 15:00 16:00 17:00 Temp 36.4 Pulse 90 88 87 86 Resp 16 16 16 16 B/P (MAP) 142/90 (107) 134/86 (102) 139/92 (108) 150/99 (116) Pulse Ox 97 O2 Delivery Room Air Room Air Room Air Room Air 11/23/20 11/23/20 11/23/20 11/23/20 18:00 18:45 20:30 20:56 Temp 36.6 Pulse 89 91 90 90 Resp 16 16 18 B/P (MAP) 163/102 (122) 168/93 (118) 177/101 (126) 129/78 (95) Pulse Ox 98 O2 Delivery Room Air Room Air Room Air Room Air 11/23/20 11/23/20 11/24/20 11/24/20 21:05 21:15 01:15 06:10 Temp 36.2 36.4 Pulse 92 94 81 70 Resp 18 18 16 18 B/P (MAP) 129/84 (99) 138/90 (106) 154/95 (114) 154/89 (110) Pulse Ox 98 98 O2 Delivery Room Air Room Air Room Air Room Air Physical Exam: General - Alert and oriented, no apparent distress Abdomen - Soft, appropriately tender to palpation, non-distended, fundus firm at umbilicus Extremities - no edema, negative Kaylan's bilaterally Assessment: 1 post- day #2, status post PLTCS 2. Severe preeclampsia with labile blood pressures. 3. Am labs are pending Recovering well, hemodynamically stable [] Plan: Routine care. Encourage breast feeding. Encourage ambulation. Ferrous sulfate supplementation. Plan for discharge possibly tomorrow Vitals - Labs Vital Signs - I&O Vital Signs Date Time Temp Pulse Resp B/P (MAP) Pulse Ox O2 Delivery O2 Flow Rate FiO2 11/24/20 06:10 36.4 70 18 154/89 (110) 98 Room Air 11/24/20 01:15 36.2 81 16 154/95 (114) 98 Room Air 11/23/20 21:15 94 18 138/90 (106) Room Air 11/23/20 21:05 92 18 129/84 (99) Room Air 11/23/20 20:56 90 18 129/78 (95) Room Air 11/23/20 20:30 36.6 90 16 177/101 (126) 98 Room Air 11/23/20 18:45 91 168/93 (118) Room Air 11/23/20 18:00 89 16 163/102 (122) Room Air 11/23/20 17:00 86 16 150/99 (116) Room Air 11/23/20 16:00 36.4 87 16 139/92 (108) 97 Room Air 11/23/20 15:00 88 16 134/86 (102) Room Air 11/23/20 14:39 90 16 142/90 (107) Room Air 11/23/20 14:00 92 16 169/93 (118) Room Air 11/23/20 13:00 95 16 165/99 (121) Room Air 11/23/20 12:21 36.7 83 16 153/96 (115) 96 Room Air 11/23/20 12:00 92 16 169/109 (129) Room Air 11/23/20 11:00 90 16 174/112 (132) Room Air 11/23/20 10:00 77 16 158/101 (120) Room Air 11/23/20 09:00 80 16 152/102 (119) Room Air I & O 11/24/20 07:00 Intake Total 3200 ml Output Total 8525 ml Balance -5325 ml IZZY PERRY DO Nov 24, 2020 08:54
[2020-11-24 09:33] LABS: BASOPHILS % (AUTO) 0 % (0-10); EOSINOPHILS # (AUTO) 0.1 10^3/uL (0.0-0.3); EOSINOPHILS % (AUTO) 1 % (0-10); HEMATOCRIT 35 % (35-52); HEMOGLOBIN 11.1 g/dL (11.5-16.0); LYMPHOCYTES # (AUTO) 2.2 10^3/uL (1.0-4.0); LYMPHOCYTES % (AUTO) 18 % (12-44); MEAN CORPUSCULAR HEMOGLOBIN 28 pg (25-34); MEAN CORPUSCULAR HGB CONC 32 g/dL (32-36); MEAN CORPUSCULAR VOLUME 87 fL (80-99); MEAN PLATELET VOLUME 13.7 fL (9.0-12.2); MONOCYTES # (AUTO) 0.6 10^3/uL (0.0-1.0); MONOCYTES % (AUTO) 5 % (0-12); NEUTROPHILS # (AUTO) 9.3 10^3/uL (1.8-7.8); NEUTROPHILS % (AUTO) 75 % (42-75); PLATELET COUNT 149 10^3/uL (130-400); WHITE BLOOD COUNT 12.3 10^3/uL (4.3-11.0)
[2020-11-24 09:54] LABS: POTASSIUM 3.9 MMOL/L (3.6-5.0)
[2020-11-24 09:56] LABS: TOTAL PROTEIN 6.3 GM/DL (6.4-8.2)
[2020-11-24 09:58] LABS: BILIRUBIN,TOTAL 0.2 MG/DL (0.1-1.0)
[2020-11-24 10:00] LABS: CREATININE SERUM 0.83 MG/DL (0.60-1.30)
[2020-11-24] MEDS ORDERED: LABETALOL 200 MG (NORMODYNE) TAB PO ONE ×2 (18:00→18:53)
[2020-11-25 02:00] VITALS: BP 157/88
[2020-11-25] MEDS: IBUPROFEN 600 MG (MOTRIN) TAB PO SCH (02:00)
[2020-11-25 08:45] VITALS: BP 152/90
[2020-11-25] MEDS: amLODIPine 5 MG (NORVASC) TAB PO SCH (08:55)
[2020-11-25] MEDS: DOCUSATE SODIUM 100 MG (COLACE) CAP PO SCH (08:55)
[2020-11-25] MEDS ORDERED: meTOproloL SUCCINATE 50 MG (TOPROL XL) TAB PO SCH (09:00)
[2020-11-25 11:05] VITALS: BP 149/91
[2020-11-25] MEDS ORDERED: METO50TA7 PO (11:05)
[2020-11-25] MEDS ORDERED: AMLO-251 PO (11:05)
--- NOTE | 2020-11-25 11:11 | Postpartum Progress Note ---
Post Op Post-operative Day #2 s/p PLTCS Severe preeclampsia she received additional dose of antihypertensive (labetalol) again last night due to continued severe range blood pressures. Still very labile. Metoprolol started this am. Subjective: Patient is without complaints. Ambulating, voiding after chin removed. Tolerat ing a regular diet without nausea or vomiting. Normal lochia. Pain is well controlled with oral pain medications. Passing flatus. breast feeding. [] Objective: Laboratory Tests Test 11/24/20 09:25 Range/Units White Blood Count 12.3 H 4.3-11.0 10^3/uL Red Blood Count 4.03 3.80-5.11 10^6/uL Hemoglobin 11.1 L 11.5-16.0 g/dL Hematocrit 35 35-52 % Mean Corpuscular Volume 87 80-99 fL Mean Corpuscular Hemoglobin 28 25-34 pg Mean Corpuscular Hemoglobin Concent 32 32-36 g/dL Red Cell Distribution Width 14.8 H 10.0-14.5 % Platelet Count 149 130-400 10^3/uL Mean Platelet Volume 13.7 H 9.0-12.2 fL Immature Granulocyte % (Auto) 1 % Neutrophils (%) (Auto) 75 42-75 % Lymphocytes (%) (Auto) 18 12-44 % Monocytes (%) (Auto) 5 0-12 % Eosinophils (%) (Auto) 1 0-10 % Basophils (%) (Auto) 0 0-10 % Neutrophils # (Auto) 9.3 H 1.8-7.8 10^3/uL Lymphocytes # (Auto) 2.2 1.0-4.0 10^3/uL Monocytes # (Auto) 0.6 0.0-1.0 10^3/uL Eosinophils # (Auto) 0.1 0.0-0.3 10^3/uL Basophils # (Auto) 0.0 0.0-0.1 10^3/uL Immature Granulocyte # (Auto) 0.1 0.0-0.1 10^3/uL Sodium Level 137 135-145 MMOL/L Potassium Level 3.9 3.6-5.0 MMOL/L Chloride Level 108 H 98-107 MMOL/L Carbon Dioxide Level 19 L 21-32 MMOL/L Anion Gap 10 5-14 MMOL/L Blood Urea Nitrogen 9 7-18 MG/DL Creatinine 0.83 0.60-1.30 MG/DL Estimat Glomerular Filtration Rate 78 BUN/Creatinine Ratio 11 Glucose Level 173 H 70-105 MG/DL Calcium Level 8.0 L 8.5-10.1 MG/DL Corrected Calcium 8.8 8.5-10.1 MG/DL Total Bilirubin 0.2 0.1-1.0 MG/DL Aspartate Amino Transf (AST/SGOT) 43 H 5-34 U/L Alanine Aminotransferase (ALT/SGPT) 63 H 0-55 U/L Alkaline Phosphatase 118 40-136 U/L Total Protein 6.3 L 6.4-8.2 GM/DL Albumin 3.0 L 3.2-4.5 GM/DL 11/25/20 11/25/20 02:00 08:45 Temp 36.3 37.2 Pulse 84 94 Resp 18 20 B/P (MAP) 157/88 (111) 152/90 (110) Pulse Ox 97 94 O2 Delivery Room Air Room Air Physical Exam: General - Alert and oriented, no apparent distress Abdomen - Soft, appropriately tender to palpation, non-distended, fundus firm at umbilicus Incision - clean, dry and intact; no erythema or induration, no drainage Extremities - no edema, negative Kaylan's bilaterally Assessment: 1. post-operative day # 2, status post PLTCS. Recovering well, hemodynamically stable 2. Severe preeclampsia 3. Gestational diabetes Plan: Routine post-operative care. Encourage breast feeding. Encourage ambulation. VTE prophylaxis: SCDs. Ferrous sulfate supplementation. Plan for discharge today, will follow up next week for BP check Vitals - Labs Vital Signs - I&O Vital Signs Date Time Temp Pulse Resp B/P (MAP) Pulse Ox O2 Delivery O2 Flow Rate FiO2 11/25/20 08:45 37.2 94 20 152/90 (110) 94 Room Air 11/25/20 02:00 36.3 84 18 157/88 (111) 97 Room Air 11/24/20 21:00 36.2 78 18 135/82 (99) 97 Room Air 11/24/20 17:53 65 18 167/87 (113) Room Air 11/24/20 17:10 36.6 77 18 182/88 (119) 97 Room Air 11/24/20 11:40 36.8 77 18 151/90 (110) 98 Room Air IZZY PERRY DO Nov 25, 2020 11:11
--- NOTE | 2020-11-25 11:15 | Discharge Inst-Women's Service ---
Discharge Inst-Women's Serv Depart Medication/Instructions New, Converted or Re-Newed RX: RX on Chart Instructions metoprolol 50 mg XR daily norvasc 10 mg daily Will need 2 hour glucola at 6 week pp exam Final Diagnosis severe preeclampsia primary section gestational diabetes advanced maternal age Problems Reviewed?: Yes Consults/Follow Up Additional Follow Up: Yes (Nov [address] Campuzano) Activity Activity: Activity as Tolerated (no lifting over 25 lbs) Driving Instructions: No Driving for 1 Week NO SMOKING: NO SMOKING Nothing Inside Vagina: No Douching, No [place], No Tampons Diet Discharge Diet: No Restrictions Symptoms to Report to : Bleeding Excessive, Pain Increased, Fever Over 101 Degrees F, Vaginal Bleeding Increase, Cramps in Feet or Legs, Vaginal Discharge Foul For Any Problems or Questions: Contact Your Physician Skin/Wound Care Infection Signs and Symptoms: Increased Redness, Foul Odor of Wound, Increased Drainage, Skin Itchy or Has a Rash, Increased Swelling, Temperature Above 101 F Operative Area Clean and Dry: Keep Incision Clean/Dry Stitches/[place]/Dermabond: Dermabond Bathing Instructions: IZZY Rea DO Nov 25, 2020 11:15
[2020-11-25 12:40] VITALS: BP 152/90
== END 2020-11-25 12:35 | disposition home or self-care (01) | DRG 787 ==
LOC: WSo 16:28 → LDRP 16:28 → WSo 19:22 → LDRP 19:48 → WS 11-23 11:00
PROVIDERS: ADMIT Obstetrics & Gynecology; ATTEND Obstetrics & Gynecology
PROC: 3E0DXGC Introduction of Other Therapeutic Substance into Mouth and Pharynx, External Approach (ICD-10-PCS; 2020-11-22)
PROC: 10D00Z1 Extraction of Products of Conception, Low, Open Approach (ICD-10-PCS; principal; 2020-11-23)
DX: O14.14 Severe pre-eclampsia complicating childbirth (principal); D62 Acute posthemorrhagic anemia; O26.873 Cervical shortening, third trimester; Z3A.37 37 weeks gestation of pregnancy; Z37.0 Single live birth; O24.425 Gestational diabetes mellitus in childbirth, controlled by oral hypoglycemic drugs; Z88.2 Allergy status to sulfonamides; O90.81 Anemia of the puerperium
CPT/HCPCS: 36415; 80053; 82570; 83735; 84156; 84550; 85025; 86850; 86900; 86901

== ENCOUNTER 2020-12-13 15:42 | Day surgery (SDC) | payer BC ==
[2020-12-13] VITALS (7 sets, daily range): BP systolic 102–138; BP diastolic 63–92
[~2020-12-13] VITALS: Ht 162.5 cm; Wt 90.2 kg
[~2020-12-13 15:42] MED LIST changes: +AMLO-250 PO; +AMLO-251 PO; +DOCU-239 PO; +GLYB1.253 PO; +IBUP-844 PO; +METO50TA7 PO
[2020-12-13 16:10] LABS: BASOPHILS % (AUTO) 0 % (0-10); EOSINOPHILS % (AUTO) 0 % (0-10); HEMATOCRIT 41 % (35-52); HEMOGLOBIN 13.2 g/dL (11.5-16.0); LYMPHOCYTES # (AUTO) 0.9 X 10^3 (1.0-4.0); LYMPHOCYTES % (AUTO) 5 % (12-44); MEAN CORPUSCULAR HEMOGLOBIN 27 pg (25-34); MEAN CORPUSCULAR HGB CONC 32 g/dL (32-36); MEAN CORPUSCULAR VOLUME 84 fL (80-99); MEAN PLATELET VOLUME 12.1 fL (9.0-12.2); MONOCYTES # (AUTO) 0.7 X 10^3 (0.0-1.0); MONOCYTES % (AUTO) 4 % (0-12); NEUTROPHILS # (AUTO) 16.7 X 10^3 (1.8-7.8); NEUTROPHILS % (AUTO) 91 % (42-75); PLATELET COUNT 314 10^3/uL (130-400); WHITE BLOOD COUNT 18.4 10^3/uL (4.3-11.0)
--- NOTE | 2020-12-13 16:10 | ED Abdominal Pain ---
General Chief Complaint: Abdominal/GI Problems Stated Complaint: ABD PAIN/POST X 3 WEEKS (C SEC)/FEVER Source of Information: Patient History of Present Illness Date Seen by Provider: Dec 13, 2020 Time Seen by Provider: 15:57 Initial Comments PT ARRIVES VIA POV FROM HOME STATES SHE WOKE UP AT 0500 THIS AM WITH SHARP STABBING PAIN IN RIGHT UPPER AB DOMEN RADIATING AROUND TO RIGHT FLANK/MID BACK AREA PAIN IS CONSTANT AND RATES 10/10 NOTHING WORSENS OR IMPROVES PAIN C/O NAUSEA AND VOMITED X 2 THIS AM, NO EMESIS SINCE 11:00 AM TODAY NO DIARRHEA NO URINARY SYMPTOMS HAD TEMP OF 100 AT HOME EARLIER TODAY, BUT TOOK HYDROCODONE AT 11:00 AM--MINIMAL RELIEF OF PAIN NO SWELLING IN LEGS/FEET NO SHORTNESS OF BREATH NO CHEST PAIN OR PAIN WITH BREATHING IN CHEST NO COUGH PT DELIVERED 11/23/20 VIA HAD SEVERE PRE-ECLAMPSIA, GESTATIONAL DIABETES, AND INCOMPETENT CERVIX PT IS PT IS HAVING NORMAL LOCHIA--USING 2-3 PADS/DAY SAW DR. BRAVO'S [employer] HELPER ON 11/28/20 FOR ROUTINE POST VISIT. HAS NOT ATTEMPTED TO CONTACT HIM OR HIS PCP FOR THIS PROBLEM TODAY. PCP: DR. COTO SOCIAL STUDIES DEPARTMENT CHAIR: DR. BRAVO Allergies and Home Medications Allergies Coded Allergies: Sulfa (Sulfonamide Antibiotics) (Verified Allergy, Mild, HIVES, 06/29/20) Patient Home Medication List Albuterol Sulfate (Proair Hfa) 1 Puff Puff, 2 PUFF IH Q4H PRN for SHORTNESS OF BREATH, (Reported) Entered as Reported by: ZOEY KIM on 11/10/17 1000 Amlodipine Besylate (Amlodipine Besylate) 10 Mg Tablet, 10 MG PO DAILY Prescribed by: IZZY PERRY on 11/25/20 1105 Docusate Sodium (Dok) 100 Mg Capsule, 100 MG PO BID Prescribed by: BRIANA JIM on 11/23/20 1116 Glyburide (Glyburide) 1.25 Mg Tablet, 1.25 MG PO HS, (Reported) Entered as Reported by: DONY VALDEZ on 11/22/20 1707 Hydrocodone Bit/Acetaminophen (HYDROcodone/APAP 5 MG/325 MG TAB) 1 Tab Tab, 1-2 EA PO Q6HR PRN for PAIN-MODERATE (5-7) Prescribed by: BRIANA JIM on 11/23/20 1119 Ibuprofen (Ibu) 600 Mg Tablet, 600 MG PO Q6HR Prescribed by: BRIANA JIM on 11/23/20 1116 Metoprolol Succinate (Metoprolol Succinate) 50 Mg Tab.er.24h, 50 MG PO DAILY Prescribed by: IZZY PERRY on 11/25/20 1105 Montelukast Sodium (Montelukast Sodium) 10 Mg Tablet, 10 MG PO DAILY, (Reported) Entered as Reported by: VILMA COMER on 06/21/20 1112 Mv-Mn/Iron/FA/Om3/Dha/Epa/Hb/D ( Daily Duo Combo Pack) 1 Each Combo..pkg, 1 EACH PO DAILY, (Reported) Entered as Reported by: MARYELLEN LEBRON on 06/29/20 0820 Review of Systems Review of Systems Constitutional: see HPI, fever EENTM: No Symptoms Reported Respiratory: No Symptoms Reported Cardiovascular: No Symptoms Reported Gastrointestinal: See HPI, Abdominal Pain; Denies Constipated, Denies Diarrhea; Nausea, Vomiting Genitourinary: See HPI Musculoskeletal: see HPI, back pain Skin: no symptoms reported; No rash Psychiatric/Neurological: No Symptoms Reported Endocrine: No Symptoms Reported Hematologic/Lymphatic: No Symptoms Reported Past Ojbhsig-Akhpwz-Xxypek Hx Seasonal Allergies Seasonal Allergies: Yes Past Medical History Surgery/Hospitalization HX: 11/23/20--SEVERE PRE-ECLAMPSIA, GESTATIONAL DIABETES, INCOMPETENT CERVIX LEEP/CERVICAL CONIZATION WISDOM TEETH REMOVED SKIN LESIONS REMOVED Surgeries: Yes (CERVICAL CONIZATION, WISDOM TEETH, skin lesion removed) Section Respiratory: Yes Asthma Currently Using CPAP: No Currently Using BIPAP: No Cardiac: Yes (SEVERE PRE-ECLAMPSIA) Neurological: No : No Reproductive Disorders: Yes (CERVICAL DYSPLASIA-S/P LEEP CONIZATION) Sexually Transmitted Disease: No HIV/AIDS: No Genitourinary: No Gastrointestinal: No Musculoskeletal: No Endocrine: Yes (GESTATIONAL DIABETES) HEENT: No Loss of Vision: Bilateral Hearing Impairment: Denies Cancer: No Psychosocial: No Integumentary: No Blood Disorders: No Adverse Reaction/Blood Tranf: No (N/A) Physical Exam Vital Signs Vital Signs - First Documented 12/13/20 15:48 Temp 37.2 Pulse 111 Resp 20 B/P (MAP) 163/122 (136) Pulse Ox 97 O2 Delivery Room Air Capillary Refill : Height/Weight/BMI Height: 5'4.00" Weight: 203lbs. 0.0oz. 92.465192pk; 37.29 BMI Method: General Appearance: WD/WN, no apparent distress, other (DOES NOT APPEAR ILL OR TO BE IN ANY DISCOMFORT OR DISTRESS. ) Progress/Results/Core Measures Results/Orders Lab Results Laboratory Tests Test 12/13/20 15:57 12/13/20 16:44 Range/Units White Blood Count 18.4 H 4.3-11.0 10^3/uL Red Blood Count 4.88 3.80-5.11 10^6/uL Hemoglobin 13.2 11.5-16.0 g/dL Hematocrit 41 35-52 % Mean Corpuscular Volume 84 80-99 fL Mean Corpuscular Hemoglobin 27 25-34 pg Mean Corpuscular Hemoglobin Concent 32 32-36 g/dL Red Cell Distribution Width 13.8 10.0-14.5 % Platelet Count 314 130-400 10^3/uL Mean Platelet Volume 12.1 9.0-12.2 fL Immature Granulocyte % (Auto) 0 % Neutrophils (%) (Auto) 91 H 42-75 % Lymphocytes (%) (Auto) 5 L 12-44 % Monocytes (%) (Auto) 4 0-12 % Eosinophils (%) (Auto) 0 0-10 % Basophils (%) (Auto) 0 0-10 % Neutrophils # (Auto) 16.7 H 1.8-7.8 X 10^3 Lymphocytes # (Auto) 0.9 L 1.0-4.0 X 10^3 Monocytes # (Auto) 0.7 0.0-1.0 X 10^3 Eosinophils # (Auto) 0.0 0.0-0.3 10^3/uL Basophils # (Auto) 0.0 0.0-0.1 10^3/uL Immature Granulocyte # (Auto) 0.1 0.0-0.1 10^3/uL Neutrophils % (Manual) 89 % Lymphocytes % (Manual) 8 % Monocytes % (Manual) 3 % Blood Morphology Comment NORMAL Sodium Level 137 135-145 MMOL/L Potassium Level 4.2 3.6-5.0 MMOL/L Chloride Level 100 98-107 MMOL/L Carbon Dioxide Level 20 L 21-32 MMOL/L Anion Gap 17 H 5-14 MMOL/L Blood Urea Nitrogen 22 H 7-18 MG/DL Creatinine 0.75 0.60-1.30 MG/DL Estimat Glomerular Filtration Rate 88 BUN/Creatinine Ratio 29 Glucose Level 131 H 70-105 MG/DL Calcium Level 9.8 8.5-10.1 MG/DL Corrected Calcium 8.5-10.1 MG/DL Total Bilirubin 0.3 0.1-1.0 MG/DL Aspartate Amino Transf (AST/SGOT) 23 5-34 U/L Alanine Aminotransferase (ALT/SGPT) 44 0-55 U/L Alkaline Phosphatase 110 40-136 U/L Total Protein 8.4 H 6.4-8.2 GM/DL Albumin 4.6 H 3.2-4.5 GM/DL Amylase Level 37 25-125 U/L Lipase 6 L 8-78 U/L Urine Color YELLOW Urine Clarity CLEAR Urine pH 6.0 5-9 Urine Specific [place] 1.025 H 1.016-1.022 Urine Protein NEGATIVE NEGATIVE Urine Glucose (UA) NEGATIVE NEGATIVE Urine Ketones NEGATIVE NEGATIVE Urine Nitrite POSITIVE H NEGATIVE Urine Bilirubin NEGATIVE NEGATIVE Urine Urobilinogen 0.2 < = 1.0 MG/DL Urine Leukocyte Esterase TRACE H NEGATIVE Urine RBC (Auto) 1+ H NEGATIVE Urine RBC 0-2 /HPF Urine WBC 10-25 H /HPF Urine Squamous Epithelial Cells 2-5 /HPF Urine Crystals NONE /LPF Urine Bacteria FEW H /HPF Urine Casts NONE /LPF Urine Mucus NEGATIVE /LPF Urine Culture Indicated YES My Orders Orders - TREMAYNE FLORES DO Ed Iv/Invasive Line Start (12/13/20 16:04) Amylase (12/13/20 16:04) Cbc With Automated Diff (12/13/20 16:04) Comprehensive Metabolic Panel (12/13/20 16:04) Lipase (12/13/20 16:04) Ua Culture If Indicated (12/13/20 16:04) Ed Iv/Invasive Line Start (12/13/20 16:04) Lactated Ringers (Lr 1000 Ml Iv Solution (12/13/20 16:15) Straight Cath For Spec.-Adult (12/13/20 16:04) Manual Differential (12/13/20 15:57) Urine Culture (12/13/20 16:44) Ct Abdomen/Pelvis W (12/13/20 17:05) Ceftriaxone (Rocephin) (12/13/20 17:05) Ketorolac Injection (Toradol Injection) (12/13/20 17:08) Iohexol Injection (Omnipaque 350 Mg/Ml 1 (12/13/20 17:15) Received Contrast (Hold Metformin- Contr (12/13/20 17:15) Ns (Ivpb) (Sodium Chloride 0.9% Ivpb Bag (12/13/20 17:15) Medications Given in ED Current Medications Medications Dose Ordered Sig/Jasmine Route Start Time Stop Time Status Last Admin Dose Admin Iohexol 100 ml ONCE ONCE IV 12/13/20 17:15 12/13/20 17:16 DC 12/13/20 17:32 100 ML Lactated Ringer's 1,000 ml @ 0 mls/hr Q0M ONCE IV 12/13/20 16:15 12/13/20 16:16 DC 12/13/20 16:21 1,000 MLS/HR Sodium Chloride 100 ml ONCE ONCE IV 12/13/20 17:15 12/13/20 17:16 DC 12/13/20 17:32 80 ML Vital Signs/I&O 12/13/20 15:48 Temp 37.2 Pulse 111 Resp 20 B/P (MAP) 163/122 (136) Pulse Ox 97 O2 Delivery Room Air Departure Departure-Patient Inst. Referrals: VIN COTO MD (PCP/Family) Primary Care Physician TREMAYNE FLORES DO Dec 13, 2020 16:10
[2020-12-13] MEDS ORDERED: LACTATED RINGERS 1,000 ML IV ONE (16:15)
[2020-12-13 16:16] LABS: ALBUMIN 4.6 GM/DL (3.2-4.5); CHLORIDE 100 MMOL/L (98-107); POTASSIUM 4.2 MMOL/L (3.6-5.0); SODIUM 137 MMOL/L (135-145)
[2020-12-13 16:17] LABS: AMYLASE 37 U/L (25-125)
[2020-12-13 16:18] LABS: CALCIUM 9.8 MG/DL (8.5-10.1)
[2020-12-13 16:19] LABS: GLUCOSE 131 MG/DL (70-105); TOTAL PROTEIN 8.4 GM/DL (6.4-8.2)
[2020-12-13 16:20] LABS: CARBON DIOXIDE 20 MMOL/L (21-32)
[2020-12-13 16:21] LABS: BILIRUBIN,TOTAL 0.3 MG/DL (0.1-1.0)
[2020-12-13 16:22] LABS: ALKALINE PHOSPHATASE 110 U/L (40-136); CREATININE SERUM 0.75 MG/DL (0.60-1.30); GFR ESTIMATED 88
[2020-12-13 16:23] LABS: BUN/CREATININE RATIO 29
[2020-12-13 16:25] LABS: ALANINE AMINOTRANSFERASE 44 U/L (0-55)
[2020-12-13 16:26] LABS: LIPASE 6 U/L (8-78)
[2020-12-13 16:51] LABS: BILIRUBIN,URINE NEGATIVE (NEGATIVE); CLARITY,URINE CLEAR; COLOR,URINE YELLOW; GLUCOSE, URINE (UA) NEGATIVE (NEGATIVE); KETONES,URINE NEGATIVE (NEGATIVE); LEUKOCYTE ESTERASE ,URINE TRACE (NEGATIVE); NITRITE,URINE POSITIVE (NEGATIVE); PROTEIN,URINE NEGATIVE (NEGATIVE)
[2020-12-13 16:52] LABS: LYMPHOCYTES % (MANUAL) 8 %; MONOCYTES % (MANUAL) 3 %; NEUTROPHILS % (MANUAL) 89 %; RBC MORPH NORMAL
[2020-12-13 16:58] LABS: BACTERIA,URINE FEW /HPF; RBC,URINE 0-2 /HPF
[2020-12-13] MEDS ORDERED: cefTRIAXone 1,000 MG in WATER (STERILE) FOR INJECTION 10 ML IV STA (17:05)
[2020-12-13] MEDS ORDERED: KETOROLAC 30 MG/ML VIAL IVP STA (17:08)
[2020-12-13] MEDS ORDERED: IOHEXOL 350 MG/ML 100 ML (OMNIPAQUE 350) VIAL IV ONE (17:15)
[2020-12-13] MEDS ORDERED: HOLD METFORMIN - RECEIVED CONTRAST 20 ML VIAL IV SCH (17:15)
[2020-12-13] MEDS ORDERED: NS 100 ML (IVPB) BAG IV ONE (17:15)
--- NOTE | 2020-12-13 17:44 | Diagnostic Imaging Report ---
CT ABDOMEN/PELVIS W TECHNIQUE: Multiple contiguous axial images were obtained through the abdomen and pelvis after administration of intravenous contrast. All CT scans use one or more of the following dose optimizing techniques: Automated exposure control, MA and/or KvP adjustment based on patient size and exam type or iterative reconstruction. INDICATION: Abdominal pain, three weeks . COMPARISON: None available. FINDINGS: Lower chest: The lung bases are clear. No pericardial or pleural effusion. Peritoneum: No free intraperitoneal air. Liver and biliary system: The liver is normal. Cholelithiasis without features of acute cholecystitis. No biliary duct dilatation. Spleen and Pancreas: Spleen is normal. The pancreas enhances normally without mass lesion or peripancreatic inflammatory changes. Adrenals: Normal. tract: The kidneys enhance normally without suspicious mass or obstruction. Urinary bladder is distended without wall thickening. The uterus and ovaries are normal in appearance. GI tract: Stomach is decompressed. No bowel obstruction. No pericolonic inflammatory changes. The appendix is dilated measuring up to 1.3 cm with ill definition of the cook and a moderate amount of surrounding inflammatory change. Of note, the appendix extends cranially into the right upper quadrant below the liver. Vasculature and Lymph nodes: Normal caliber aorta. No abdominal or pelvic lymphadenopathy. Musculoskeletal: No concerning osseous lesion. IMPRESSION: 1. Acute appendicitis with a moderate amount of surrounding inflammatory stranding. Given the ill definition of the wall and the degree of inflammation, microperforation could be present. No abscess or free air. 2. Of note, the appendix extends cranially from the right lower quadrant into the right upper quadrant near the tip of the liver. Dictated by: Dictated on workstation # [id number]
[2020-12-13] MEDS ORDERED: PIPERACILLIN SODIUM/TAZOBACTAM 4.5 GM in NS (IVPB) 100 ML IV ONE (18:00)
--- NOTE | 2020-12-13 18:51 | Consultation - Surgery ---
TAI RENTERIA 12/13/20 1851: History of Present Illness History of Present Illness Patient Consulted On(demarco/time) 12/13/20 18:46 Date Seen by Provider: Dec 13, 2020 Time Seen by Provider: 18:25 Reason for Visit: Abdominal pain History of Present Illness Patient is a 35 y/o female who presented to the ED at 1530 with abdominal pain. Patient reports her pain began around 0500. She reports the pain as beginning at her umbilicus and radiating around to her right flank. Patient reports tenderness to palpation to RUQ and RLQ. Patient says the pain has been constant since it began and has not abated with pain medicine at home. She describes it as sharp. Patient endorses nausea and vomiting and reports she vomited at 0700 and 1100. Patient says the medicine and IV fluids she has gotten at the hospital have helped her pain. She says the pain got worse from the morning until she went to the hospital. She rated it a 10/10 at its peak and a 5/10 currently. Patient has tenderness over McBurney's point and negative Rovsing's sign. Allergies and Home Medications Allergies Coded Allergies: Sulfa (Sulfonamide Antibiotics) (Verified Allergy, Mild, HIVES, 06/29/20) Patient Home Medication List Albuterol Sulfate (Proair Hfa) 1 Puff Puff, 2 PUFF IH Q4H PRN for SHORTNESS OF BREATH, (Reported) Entered as Reported by: ZOEY KIM on 11/10/17 1000 Amlodipine Besylate (Amlodipine Besylate) 10 Mg Tablet, 10 MG PO DAILY Prescribed by: IZZY PERRY on 11/25/20 1105 Docusate Sodium (Dok) 100 Mg Capsule, 100 MG PO BID Prescribed by: BRIANA JIM on 11/23/20 1116 Glyburide (Glyburide) 1.25 Mg Tablet, 1.25 MG PO HS, (Reported) Entered as Reported by: DONY VALDEZ on 11/22/20 1707 Hydrocodone Bit/Acetaminophen (HYDROcodone/APAP 5 MG/325 MG TAB) 1 Tab Tab, 1-2 EA PO Q6HR PRN for PAIN-MODERATE (5-7) Prescribed by: BRIANA JIM on 11/23/20 1119 Ibuprofen (Ibu) 600 Mg Tablet, 600 MG PO Q6HR Prescribed by: BRIANA JIM on 11/23/20 1116 Metoprolol Succinate (Metoprolol Succinate) 50 Mg Tab.er.24h, 50 MG PO DAILY Prescribed by: IZZY PERRY on 11/25/20 1105 Montelukast Sodium (Montelukast Sodium) 10 Mg Tablet, 10 MG PO DAILY, (Reported) Entered as Reported by: VILMA COMER on 06/21/20 1112 Mv-Mn/Iron/FA/Om3/Dha/Epa/Hb/D ( Daily Duo Combo Pack) 1 Each Combo..pkg, 1 EACH PO DAILY, (Reported) Entered as Reported by: MARYELLEN LEBRON on 06/29/20 0820 Past Lzndlsn-Hydoxk-Ucidxe Hx Patient Social History Smoking Status: Never a Smoker Recent Hopitalizations: No Alcohol Use?: No Have you traveled recently?: No Immunizations Up To Date Date of Influenza Vaccine: Dec 22, 2019 Seasonal Allergies Seasonal Allergies: Yes Surgeries History of Surgeries: Yes (CERVICAL CONIZATION, WISDOM TEETH, skin lesion remov ed) Surgeries: Section Respiratory History of Respiratory Disorde: Yes Respiratory Disorders: Asthma Cardiovascular History of Cardiac Disorders: Yes (SEVERE PRE-ECLAMPSIA) Neurological History of Neurological Disord: No Reproductive System : No Hx Reproductive Disorders: Yes (CERVICAL DYSPLASIA-S/P LEEP CONIZATION) Sexually Transmitted Disease: No HIV/AIDS: No Genitourinary History of Genitourinary Disor: No Gastrointestinal History of Gastrointestinal Di: No Musculoskeletal History of Musculoskeletal Dis: No Endocrine History of Endocrine Disorders: Yes (GESTATIONAL DIABETES) HEENT History of HEENT Disorders: No Loss of Vision: Bilateral Hearing Impairment: Denies Cancer History of Cancer: No Psychosocial History of Psychiatric Problem: No Integumentary History of Skin or Integumenta: No Blood Transfusions History of Blood Disorders: No Adverse Reaction to a Blood Tr: No (N/A) Family Medical History Significant Family History: Heart Disease (Mother), Diabetes (Mother), Other Conditions/Hx (MS in father) Review of Systems-General Constitutional: chills, fever EENTM: No blurred vision, No vision loss Respiratory: No cough, No short of breath Cardiovascular: No chest pain, No palpitations Gastrointestinal: abdominal pain (Umbilical pain radiating to right flank. Tenderness to palpation in RUQ and RLQ.), nausea, vomiting, other (Hematochezia) Genitourinary: No dysuria, No frequency Musculoskeletal: No joint pain, No muscle pain Physical Exam-General Problems Physical Exam Vital Signs Vital Signs - First Documented 12/13/20 15:48 Temp 37.2 Pulse 111 Resp 20 B/P (MAP) 163/122 (136) Pulse Ox 97 O2 Delivery Room Air Capillary Refill : Less Than 3 Seconds General Appearance: WD/WN, moderate distress (Patient in a moderate amount of pain) Eyes: Bilateral Eye PERRL, Bilateral Eye EOMI Neck: non-tender, normal inspection Respiratory: chest non-tender, lungs clear, normal breath sounds, no respiratory distress, no accessory muscle use Cardiovascular: normal peripheral pulses, no murmur, tachycardia Peripheral Pulses: 2+ Dorsalis Pedis (R), 2+ Left Dors-Pedis (L), 2+ Radial Pulses (R), 2+ Radial Pulses (L) Gastrointestinal: normal bowel sounds, tenderness (RUQ and RLQ tender to palpation. 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, no motor/sensory deficits, alert, normal mood/affect, oriented x 3 Skin: normal color, warm/dry Lymphatic: no adenopathy (head and neck) Data Review Labs Laboratory Tests 12/13/20 15:57: White Blood Count 18.4H, Red Blood Count 4.88, Hemoglobin 13.2, Hematocrit 41, Mean Corpuscular Volume 84, Mean Corpuscular Hemoglobin 27, Mean Corpuscular Hemoglobin Concent 32, Red Cell Distribution Width 13.8, Platelet Count 314, Mean Platelet Volume 12.1, Immature Granulocyte % (Auto) 0, Neutrophils (%) (Auto) 91H, Lymphocytes (%) (Auto) 5L, Monocytes (%) (Auto) 4, Eosinophils (%) (Auto) 0, Basophils (%) (Auto) 0, Neutrophils # (Auto) 16.7H, Lymphocytes # (Auto) 0.9L, Monocytes # (Auto) 0.7, Eosinophils # (Auto) 0.0, Basophils # (Auto) 0.0, Immature Granulocyte # (Auto) 0.1, Neutrophils % (Manual) 89, Lymphocytes % (Manual) 8, Monocytes % (Manual) 3, Blood Morphology Comment NORMAL, Sodium Level 137, Potassium Level 4.2, Chloride Level 100, Carbon Dioxide Level 20L, Anion Gap 17H, Blood Urea Nitrogen 22H, Creatinine 0.75, Estimat Glomerular Filtration Rate 88, BUN/Creatinine Ratio 29, Glucose Level 131H, Calcium Level 9.8, Corrected Calcium , Total Bilirubin 0.3, Aspartate Amino Transf (AST/SGOT) 23, Alanine Aminotransferase (ALT/SGPT) 44, Alkaline Phosphatase 110, Total Protein 8.4H, Albumin 4.6H, Amylase Level 37, Lipase 6L 12/13/20 16:44: Urine Color YELLOW, Urine Clarity CLEAR, Urine pH 6.0, Urine Specific [place] 1.025H, Urine Protein NEGATIVE, Urine Glucose (UA) NEGATIVE, Urine Ketones N EGATIVE, Urine Nitrite POSITIVEH, Urine Bilirubin NEGATIVE, Urine Urobilinogen 0.2, Urine Leukocyte Esterase TRACEH, Urine RBC (Auto) 1+H, Urine RBC 0-2, Urine WBC 10-25H, Urine Squamous Epithelial Cells 2-5, Urine Crystals NONE, Urine Bacteria FEWH, Urine Casts NONE, Urine Mucus NEGATIVE, Urine Culture Indicated YES Assessment/Plan Assessment/Plan Assessment/Plan 1. Acute appendicitis 1. Patient has elevated WBC and CT imaging consistent with acute appendicitis. CT shows cranially oriented appendix nearly touching the inferior border of the liver. Surgery indicated. TIFFANY BARNETT DO 12/13/201916: History of Present Illness History of Present Illness Time Seen by Provider: 18:55 History of Present Illness Surgery asked to consult regarding RLQ pain r/o Appendicitis. HPI per ED: PT ARRIVES VIA POV FROM HOME, STATES SHE WOKE UP AT 0500 THIS AM WITH SHARP STABBING PAIN IN RIGHT UPPER ABDOMEN RADIATING AROUND TO RIGHT FLANK/MID BACK AREA, PAIN IS CONSTANT AND RATES 10/10, NOTHING WORSENS OR IMPROVES PAIN, C/O NAUSEA AND VOMITED X 2 THIS AM, NO EMESIS SINCE 11:00 AM TODAY, NO DIARRHEA, NO URINARY SYMPTOMS, HAD TEMP OF 100 AT HOME EARLIER TODAY, BUT TOOK HYDROCODONE AT 11:00 AM--MINIMAL RELIEF OF PAIN. NO SWELLING IN LEGS/FEET, NO SHORTNESS OF BREATH, NO CHEST PAIN OR PAIN WITH BREATHING IN CHEST, NO COUGH PT DELIVERED 11/23/20 VIA , HAD SEVERE PRE-ECLAMPSIA, GESTATIONAL DIABETES, AND INCOMPETENT CERVIX, PT IS PT IS HAVING NORMAL LOCHIA--USING 2-3 PADS/DAY, SAW DR. 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 HAS NOT ATTEMPTED TO CONTACT HIM OR HIS PCP FOR THIS PROBLEM TODAY. Describes pain in RLQ and around to back, as well as up into RUQ. Nothing is making it better. Rating it 10 out of 10 at its worst. Allergies and Home Medications Allergies Coded Allergies: Sulfa (Sulfonamide Antibiotics) (Verified Allergy, Mild, HIVES, 06/29/20) Patient Home Medication List Home Medication List Reviewed: Yes Albuterol Sulfate (Proair Hfa) 1 Puff Puff, 2 PUFF IH Q4H PRN for SHORTNESS OF BREATH, (Reported) Entered as Reported by: ZOEY KIM on 11/10/17 1000 Amlodipine Besylate (Amlodipine Besylate) 10 Mg Tablet, 10 MG PO DAILY Prescribed by: IZZY PERRY on 11/25/20 1105 Docusate Sodium (Dok) 100 Mg Capsule, 100 MG PO BID Prescribed by: BRIANA JIM on 11/23/20 1116 Glyburide (Glyburide) 1.25 Mg Tablet, 1.25 MG PO HS, (Reported) Entered as Reported by: DONY VALDEZ on 11/22/20 1707 Hydrocodone Bit/Acetaminophen (HYDROcodone/APAP 5 MG/325 MG TAB) 1 Tab Tab, 1-2 EA PO Q6HR PRN for PAIN-MODERATE (5-7) Prescribed by: BRIANA JIM on 11/23/20 1119 Ibuprofen (Ibu) 600 Mg Tablet, 600 MG PO Q6HR Prescribed by: BRIANA JIM on 11/23/20 1116 Metoprolol Succinate (Metoprolol Succinate) 50 Mg Tab.er.24h, 50 MG PO DAILY Prescribed by: IZZY PERRY on 11/25/20 1105 Montelukast Sodium (Montelukast Sodium) 10 Mg Tablet, 10 MG PO DAILY, (Reported) Entered as Reported by: VILMA COMER on 06/21/20 1112 Mv-Mn/Iron/FA/Om3/Dha/Epa/Hb/D ( Daily Duo Combo Pack) 1 Each Combo..pkg, 1 EACH PO DAILY, (Reported) Entered as Reported by: MARYELLEN LEBRON on 06/29/20 0820 Past Wgkdipw-Sqaypk-Odtiyr Hx Patient Social History Smoking Status: Never a Smoker Alcohol Use?: Yes (but has not had anything for over a year) Surgeries History of Surgeries: Yes Surgeries: Section Respiratory History of Respiratory Disorde: Yes Respiratory Disorders: Asthma Cardiovascular History of Cardiac Disorders: No Neurological History of Neurological Disord: No Reproductive System : No Genitourinary History of Genitourinary Disor: No Gastrointestinal History of Gastrointestinal Di: No Musculoskeletal History of Musculoskeletal Dis: No Endocrine History of Endocrine Disorders: No HEENT History of HEENT Disorders: No Loss of Vision: Denies Hearing Impairment: Denies Cancer History of Cancer: No Psychosocial History of Psychiatric Problem: No Integumentary History of Skin or Integumenta: Yes (skin bx) Family Medical History Significant Family History: Heart Disease (Mother), Diabetes (Mother), Other Conditions/Hx (MS in father) Review of Systems-General Constitutional: chills, fever EENTM: No blurred vision, No vision loss Respiratory: No cough, No short of breath Cardiovascular: No chest pain, No palpitations Gastrointestinal: abdominal pain (Umbilical pain radiating to right flank. Tenderness to palpation in RUQ and RLQ.), nausea, vomiting, other (Hematochezia) Genitourinary: No dysuria, No frequency Musculoskeletal: No joint pain, No muscle pain Skin: No change in color, No change in hair/nails Psychiatric/Neurological: Denies Anxiety, Denies Depressed, Denies Seizure, Denies Tremors Physical Exam-General Problems Physical Exam General Appearance: WD/WN, mild distress Eyes: Bilateral Eye PERRL, Bilateral Eye EOMI HEENT: pharynx normal; No scleral icterus (R), No scleral icterus (L) Neck: non-tender, supple Respiratory: chest non-tender, lungs clear, normal breath sounds, no respiratory distress, no accessory muscle use Cardiovascular: normal peripheral pulses, no murmur, tachycardia Gastrointestinal: soft, no organomegaly; No distended, No rebound; tenderness (RUQ and RLQ tender to palpation. 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 All CT scans use one or more of the following dose optimizing techniques: Automated exposure control, MA and/or KvP adjustment based on patient size and exam type or iterative reconstruction. INDICATION: Abdominal pain, three weeks . COMPARISON: None available. FINDINGS: Lower chest: The lung bases are clear. No pericardial or pleural effusion. Peritoneum: No free intraperitoneal air. Liver and biliary system: The liver is normal. Cholelithiasis without features of acute cholecystitis. No biliary duct dilatation. Spleen and Pancreas: Spleen is normal. The pancreas enhances normally without mass lesion or peripancreatic inflammatory changes. Adrenals: Normal. tract: The kidneys enhance normally without suspicious mass or obstruction. Urinary bladder is distended without wall thickening. The uterus and ovaries are normal in appearance. GI tract: Stomach is decompressed. No bowel obstruction. No pericolonic inflammatory changes. The appendix is dilated measuring up to 1.3 cm with ill definition of the cook and a moderate amount of surrounding inflammatory change. Of note, the appendix extends cranially into the right upper quadrant below the liver. Vasculature and Lymph nodes: Normal caliber aorta. No abdominal or pelvic lymphadenopathy. Musculoskeletal: No concerning osseous lesion. IMPRESSION: 1. Acute appendicitis with a moderate amount of surrounding inflammatory stranding. Given the ill definition of the wall and the degree of inflammation, microperforation could be present. No abscess or free air. 2. Of note, the appendix extends cranially from the right lower quadrant into the right upper quadrant near the tip of the liver. Dictated by: Dictated on workstation # [id number] Dict: 12/13/201738 Trans: 12/13/201828 [id number] Interpreted by: JENNA MCCLURE MD Electronically signed by: JENNA MCCLURE MD 12/13/201828 Assessment/Plan Assessment/Plan Assessment/Plan 1. Acute appendicitis Plan is NPO, IV fluids, IV ABX, to OR for Laparoscopic appendectomy possible open (will get consent for same). I reviewed CT myself and agree with appendicitis; possible microperforation, discussed case with Dr. Hernandez. Patient also has elevated WBC and history consistent with acute appendicitis. Risks and complications discussed with pt and her ; not limited to pain, bleeding, infection, scar and damage to bowel. All questions answered to their satisfaction. Supervisory-Addendum Brief Verification & Attestation Participated in pt care: history, MDM, physical Personally performed: exam, history, MDM, supervision of care Care discussed with: Medical Student Procedures: n/a Verification and Attestation of Medical Student E/M Service A medical student performed and documented this service. I then reviewed and verified all information documented by the medical student and made modifications to such information, when appropriate. I personally performed a physical exam, medical decision making and then discussed any differences between the notes and made revisions as necessary to create one note. Tiffany Barnett , 12/13/20 , 19:22 TAI RENTERIA Dec 13, 2020 18:51 TIFFANY BARNETT DO Dec 13, 2020 19:17
[2020-12-13] MEDS ORDERED: fentaNYL INJ 100 MCG/2 ML AMP IVP ONE (19:15)
[2020-12-13] MEDS ORDERED: ONDANSETRON 4 MG/2 ML (SDV) Z0FRAN IVP PRN ×2 (19:15→21:00)
[2020-12-13] MEDS ORDERED: MEPERIDINE (DEMEROL) INJ 50 MG/ML IVP ONE (19:15)
[2020-12-13] MEDS ORDERED: morphine INJ 10 MG/ML 1ML (SYR OR VIAL) IVP ONE (19:15)
[2020-12-13] MEDS ORDERED: proPOfol 200 MG/20 ML (DIPRIVAN) VIAL IV ONE (19:29)
[2020-12-13] MEDS ORDERED: fentaNYL INJ 100 MCG/2 ML AMP ONE (19:29)
[2020-12-13] MEDS ORDERED: MIDAZOLAM 2 MG/2 ML (VERSED) VIAL ONE (19:29)
[2020-12-13] MEDS ORDERED: ROCURONIUM 10 MG/ML 5 ML SYRINGE IV ONE (19:29)
[2020-12-13] MEDS ORDERED: ONDANSETRON 4 MG/2 ML (SDV) Z0FRAN ONE (19:29)
[2020-12-13] MEDS ORDERED: LIDOCAINE PF 2% 5 ML (XYLOCAINE) VIAL ONE (19:29)
[2020-12-13] MEDS ORDERED: SEVOFLURANE (ULTANE) 15 ML INHAL SOLN ONE ×2 (19:29→20:03)
[2020-12-13] MEDS: LACTATED RINGERS 1,000 ML IV PRN ×2 (19:41→20:28)
[2020-12-13] MEDS ORDERED: SUCCINYLCHOLINE INJ 100 MG/5 ML SYR/VIAL ONE (20:03)
[2020-12-13] MEDS ORDERED: LIDOCAINE/EPI 1%-1:100,000 (XYLOCAINE) 10 ML ONE (20:04)
--- NOTE | 2020-12-13 20:56 | Progress Note-Post Operative ---
Post-Operative Progess Note Surgeon (s)/Primary Care Provider (s) Surgeon TIFFANY BARNETT DO Primary Care Provider: LOS Schreiber Pre-Operative Diagnosis Acute appy possibly perforated Post-Operative Diagnosis acute appy Procedure & Operative Findings Date of Procedure 12/13/20 Procedure Performed/Findings PROCEDURE: Laparoscopic appendectomy. COMPLICATIONS: None. INDICATIONS: The patient is a 35 year old female who has been having right lower quadrant abdominal pain. Patient's exam consistent with appendicitis. I discussed risk and benefits of laparoscopic appendectomy and all indicated procedures with the possibility being a normal appendix. The patient understands the risks and benefits and wishes to proceed. Consent was signed on the chart. DESCRIPTION OF PROCEDURE: The patient was taken to the operating suite, prepped and draped in a sterile fashion. Timeout was performed. Local anesthetic was infiltrated just above the umbilicus and 11-blade scalpel was used to make a skin incision. Cautery was used to dissect down to the fascia and scored. Kochers were used to grasp and elevate it and the abdomen was then entered. A 0 Vicryl was placed in a [id number] fashion for closure at the end of the case. The balloon trocar was inserted into the abdomen and pneumoperitoneum was achieved. Under direct visualization of the laparoscope, a 5 mm trocar was placed in the suprapubic region and a 5 mm trocar was placed in the left lower quadrant. Appendix was located, retrocecally and stuck under mesentery. The base of the appendix was dissected around. Once at the base an Endo-BOB 2.5 stapler was then fired across the base of the appendix. The mesoappendix was then divided; unfortunately while holding the tip of the appendix it ripped off, nothing came out of lumen. It was then placed in an Endobag and removed through the 12 mm trocar site. The abdomen was then irrigated and suctioned. No other pathology noted. The abdomen was then desufflated and the trocars were removed. The 0 Vicryl placed at the beginningof the case was then tied closing the 12 mm fascial defect. The skin was then closed using 4-0 Monocryl in a subcuticular fashion. The abdomen was then washed and dried and Skin Affix was placed over the incisions. The patient tolerated the procedure well without any complications and was taken to the recovery room in stable condition. Anesthesia Type GET Estimated Blood Loss Estimated blood loss (mL): scant Specimens/Packing Specimens Removed TIFFNAY Lee DO Dec 13, 2020 20:56
[2020-12-13] MEDS ORDERED: HYDROcodone/APAP 5 MG/325 MG (LORTAB) TAB PO PRN (21:00)
[2020-12-13] MEDS: LACTATED RINGERS 1,000 ML IV SCH (22:03)
[2020-12-14] MEDS: PIPERACILLIN/TAZOBACTAM (BULK) 4.5 GM in NS (IVPB) 100 ML IV SCH ×2 (01:23→08:02)
[2020-12-14 03:40] VITALS: BP 111/72
[2020-12-14] MEDS: LACTATED RINGERS 1,000 ML IV SCH (06:26)
[2020-12-14 07:37] VITALS: BP 103/58
[2020-12-14] MEDS ORDERED: PANTOPRAZOLE 40 MG (PROTONIX) VIAL IVP SCH (09:00)
--- NOTE | 2020-12-14 09:46 | Progress Note - Surgery ---
TAI RENTERIA 12/14/20 0946: Subjective Date Seen by a Provider: Dec 14, 2020 Time Seen by a Provider: 08:25 Subjective/Events-last exam Patient is a 35 y/o female 1 day s/p appendectomy. Patient reports her pain is better this morning but still present because "I just had surgery." Patient rep orts mild diffuse abdominal tenderness due to surgery. Patient reports the incision sites are non-tender. She says she feels better and has been able to eat and ambulate today. Patient is ready to go home today. Review of Systems General: No Chills, No Fatigue HEENT: No Head Aches, No Visual Changes Pulmonary: No Dyspnea, No Cough Cardiovascular: No: Chest Pain, Palpitations Gastrointestinal: Abdominal Pain (Slight diffuse tenderness); No: Nausea, Vomiting Genitourinary: No Dysuria, No Frequency Neurological: No: Weakness, Confusion Focused Exam Respiratory: Chest Non Tender, Lungs Clear, Normal Breath Sounds, No Respiratory Distress Cardiovascular: Regular Rate, Rhythm, No Edema, No Murmur, Normal Peripheral Pulses Capillary Refill: Less Than 3 Seconds Peripheral Pulses: 2+ Radial Pulses (R), 2+ Radial Pulses (L) Skin: normal color, warm/dry Objective Exam Vital Signs Date Time Temp Pulse Resp B/P (MAP) Pulse Ox O2 Delivery O2 Flow Rate FiO2 12/14/20 08:00 94 Room Air 12/14/20 07:37 37.0 84 18 103/58 (73) 94 Room Air 12/14/20 03:40 37.3 86 18 111/72 (85) 95 Room Air 12/13/20 23:30 37.0 102 18 112/73 (86) 95 Room Air 12/13/20 22:12 Room Air 12/13/20 21:50 36.8 98 18 115/72 (86) 98 Room Air 12/13/20 21:46 Room Air 12/13/20 21:40 37.2 20 102/63 (76) 95 Room Air 12/13/20 21:30 20 112/69 (83) 95 OxyMask 2 12/13/20 21:20 OxyMask 4 12/13/20 21:20 18 108/72 (84) 96 OxyMask 2 12/13/20 21:10 20 115/77 (90) 99 OxyMask 4 12/13/20 21:01 37.1 18 138/92 (107) 98 OxyMask 6 12/13/20 21:01 OxyMask 6 12/13/20 19:32 97 18 126/72 96 Room Air 12/13/20 15:48 37.2 111 20 163/122 (136) 97 Room Air I & O0 12/14/20 06:59 Intake Total 1350 ml Output Total 300 ml Balance 1050 ml Capillary Refill : Less Than 3 Seconds General Appearance: No Apparent Distress, WD/WN HEENT: PERRL/EOMI Neck: Normal Inspection, Non Tender Respiratory: Chest Non Tender, Lungs Clear, Normal Breath Sounds, No Accessory Muscle Use, No Respiratory Distress Cardiovascular: Regular Rate, Rhythm, No Edema, No Murmur, Normal Peripheral Pulses Peripheral Pulses: 2+ Dorsalis Pedis (R), 2+ Left Dors-Pedis (L), 2+ Radial Pulses (R), 2+ Radial Pulses (L) Gastrointestinal: normal bowel sounds, soft, no organomegaly; No distended, No rebound; tenderness (Slight diffuse tenderness) Extremity: Normal Capillary Refill, Normal Inspection Neurologic/Psychiatric: Alert, Oriented x3, No Motor/Sensory Deficits, Normal Mood/Affect, underwear hemmer II-XII Norm as Tested Skin: Normal Color, Warm/Dry Lymphatic: No Adenopathy (head and neck) Results Lab Laboratory Tests 12/13/20 15:57: White Blood Count 18.4H, Red Blood Count 4.88, Hemoglobin 13.2, Hematocrit 41, Mean Corpuscular Volume 84, Mean Corpuscular Hemoglobin 27, Mean Corpuscular Hemoglobin Concent 32, Red Cell Distribution Width 13.8, Platelet Count 314, Mean Platelet Volume 12.1, Immature Granulocyte % (Auto) 0, Neutrophils (%) (Auto) 91H, Lymphocytes (%) (Auto) 5L, Monocytes (%) (Auto) 4, Eosinophils (%) (Auto) 0, Basophils (%) (Auto) 0, Neutrophils # (Auto) 16.7H, Lymphocytes # (Auto) 0.9L, Monocytes # (Auto) 0.7, Eosinophils # (Auto) 0.0, Basophils # (Auto) 0.0, Immature Granulocyte # (Auto) 0.1, Neutrophils % (Manual) 89, Lymphocytes % (Manual) 8, Monocytes % (Manual) 3, Blood Morphology Comment NORMAL, Sodium Level 137, Potassium Level 4.2, Chloride Level 100, Carbon Dioxide Level 20L, Anion Gap 17H, Blood Urea Nitrogen 22H, Creatinine 0.75, Estimat Glomerular Filtration Rate 88, BUN/Creatinine Ratio 29, Glucose Level 131H, Calcium Level 9.8, Corrected Calcium , Total Bilirubin 0.3, Aspartate Amino Transf (AST/SGOT) 23, Alanine Aminotransferase (ALT/SGPT) 44, Alkaline Phosphatase 110, Total Protein 8.4H, Albumin 4.6H, Amylase Level 37, Lipase 6L 12/13/20 16:44: Urine Color YELLOW, Urine Clarity CLEAR, Urine pH 6.0, Urine Specific [place] 1.025H, Urine Protein NEGATIVE, Urine Glucose (UA) NEGATIVE, Urine Ketones NE GATIVE, Urine Nitrite POSITIVEH, Urine Bilirubin NEGATIVE, Urine Urobilinogen 0.2, Urine Leukocyte Esterase TRACEH, Urine RBC (Auto) 1+H, Urine RBC 0-2, Urine WBC 10-25H, Urine Squamous Epithelial Cells 2-5, Urine Crystals NONE, Urine Bacteria FEWH, Urine Casts NONE, Urine Mucus NEGATIVE, Urine Culture Indicated YES Microbiology 12/13/20 Urine Culture - Preliminary, Resulted Escherichia coli Assessment/Plan Assessment/Plan Assessment/Plan 1. Acute appendicitis Patient is able to eat, drink, and ambulate. Patient is doing well and ready to go home. Plan to discharge today. NAPOLEON RODRIGUEZ DO 12/14/20 1231: Subjective Time Seen by a Provider: 10:02 Subjective/Events-last exam Pt seen and examined, feels much better today. Would like to go home. Review of Systems General: No Chills Pulmonary: No Dyspnea, No Cough Cardiovascular: No: Chest Pain, Palpitations Gastrointestinal: Abdominal Pain (Slight diffuse tenderness); No: Nausea, Vomiting Objective Exam General Appearance: No Apparent Distress, WD/WN Respiratory: Lungs Clear, Normal Breath Sounds, No Accessory Muscle Use, No Respiratory Distress Cardiovascular: Regular Rate, Rhythm, No Murmur Gastrointestinal: soft, no organomegaly, tenderness (Slight diffuse tenderness), other (incisions c/d/i) Assessment/Plan Assessment/Plan Assessment/Plan 1.S/P Appendectomy Patient is able to eat, drink, and ambulate. Patient is doing well and ready to go home. Plan to discharge today. Supervisory-Addendum Brief Verification & Attestation Participated in pt care: history, MDM, physical Personally performed: exam, history, MDM, supervision of care Care discussed with: Medical Student Procedures: n/a Verification and Attestation of Medical Student E/M Service A medical student performed and documented this service. I then reviewed and verified all information documented by the medical student and made modifications to such information, when appropriate. I personally performed a physical exam, medical decision making and then discussed any differences between the notes and made revisions as necessary to create one note. Napoleon Rodriguez , 12/14/20 , 12:31 TAI RENTERIA Dec 14, 2020 09:46 NAPOLEON RODRIGUEZ DO Dec 14, 2020 12:31
[2020-12-14 11:43] VITALS: BP 106/55
--- NOTE | 2020-12-14 12:33 | Discharge Inst-Surgical ---
Discharge Inst-Surgical Depart Medication/Instructions New, Converted or Re-Newed RX: Other (use home meds) Patient Instructions Follow up Appt: Make appointment for 1 week. [phone] Instructions: No lifting greater than 20 pounds. No strenuous activity. May shower in 24 hours, no tub bath or soaking. Use incentive spirometer at home as directed. No Smoking Skin/Wound Care: May remove bandages in am. You need to leave the Dermabond on incision it will fall off on it's own. Symptoms to Report: Appetite Changes, Extremity Discoloration, Numbness/Tingling, Swelling Increased, Bleeding Excessive, Eyesight Changes, Pain Increased, Urine Color Change, Constipation(Persistent), Fever over 101 degree F, Pain/Pressure in chest, Urinating Difficulty, Cough Up/Vomit Blood, Heart Beat Irreg/Pounding, Pain/Pressure in jaw, Cramps in feet or legs, Lightheadedness, Pain/Pressure in shoulder, Diarrhea(Persistent), Memory Changes Suddenly, Questions/Concerns, Weight gain consecutive days, Dizziness/Fainting, Nausea/Vomiting, Shortness of Breath, Weight gain over 2 pounds If questions or concerns contact your physician Or seek help at emergency department. Activity Activity as Tolerated: Yes Activity Instructions: Avoid Stress to Incision Driving Instructions: No Driving/Refer to Dr. Robbins Discharge Diet: No Restrictions Diet After 24 Hours: Clear Liquid if Nauseous If Any Problems/Questions/Issu: Contact Your Physician, Go to Emergency Room Skin/Wound Care Infection Signs and Symptoms: Increased Redness, Foul Odor of Wound, Increased Drainage, Skin Itchy or Has a Rash, Increased Swelling, Temperature Above 101 F Bathing Instructions: Shower Stitches/Joe/Dermabond Dis: TIFFANY López DO Dec 14, 2020 12:33
[2020-12-14 13:00] VITALS: BP 106/55
--- NOTE | 2020-12-14 13:20 | Anesthesia-General Post-Op ---
General Patient Condition Mental Status/LOC: Same as Preop Cardiovascular: Satisfactory Nausea/Vomiting: Absent Respiratory: Satisfactory Pain: Controlled Complications: Absent Post Op Complications Complications None Follow Up Care/Instructions Patient Instructions None needed. Anesthesia/Patient Condition Patient Condition Patient is doing well, no complaints, stable vital signs, no apparent adverse anesthesia problems. No complications reported per nursing. BIJU KELLEY CRNA Dec 14, 2020 13:20
== END 2020-12-14 13:00 | disposition home or self-care (01) ==
LOC: EDUNIT# 15:42 → ER 15:45 → SDC 19:12 → 4TH 21:51 → SDC 12-14 13:00
PROVIDERS: ATTEND Surgery
DX: K35.80 Unspecified acute appendicitis (principal); J45.909 Unspecified asthma, uncomplicated; H54.7 Unspecified visual loss; Z79.899 Other long term (current) drug therapy
CPT/HCPCS: 36415; 51701; 74177; 80053; 81000; 82150; 83690; 85007; 85027; 87077; 87088; 87186; 88304; 96374; 96375